=== PATIENT | male | born 1980 | race American Indian/Alaskan Native ===

== ENCOUNTER 2017-07-15 19:54 | Inpatient (IN) | payer MEDICAID, OTHER ==
[2017-07-15 20:06] VITALS: BMI 29.6
--- NOTE | 2017-07-15 20:19 | ED PDOC ---
Arrival/HPI - General Chief Complaint: Psychiatric Evaluation Time Seen by Provider: 07/15/17 19:56 Historian: Patient - History of Present Illness Narrative History of Present Illness (Text): 07/15/17 20:19 Pt. to ED PMX Bipolar Disorder psych transfer from [facility] for admission to the psychiatric unit.Pt. with recent worsening depression and suicidal ideation.No specific plan.Pt. also admits to hearing voices.He denies any somatic complaints. Past Medical History - Provider Review Nursing Documentation Reviewed: Yes - Travel History Have you recently traveled outside [place] w/in the past 3 mons?: No - Infectious Disease Hx of Infectious Diseases: None - Reproductive Currently Lactating: No - Cardiac Hx Cardiac Disorders: No - Pulmonary Hx Respiratory Disorders: No - Neurological Hx Neurological Disorder: No - HEENT Hx HEENT Disorder: No - Renal Hx Renal Disorder: No - Endocrine/Metabolic Hx Endocrine Disorders: No - Hematological/Oncological Hx Blood Disorders: No - Integumentary Hx Dermatological Disorder: No - Musculoskeletal/Rheumatological Hx Musculoskeletal Disorders: No - Gastrointestinal Hx Gastrointestinal Disorders: No - Genitourinary/Gynecological Hx Genitourinary Disorders: No - Psychiatric Hx Psychophysiologic Disorder: Yes Hx Depression: Yes Hx Substance Use: Yes (cocaine) - Anesthesia Hx Anesthesia: No Family/Social History - Physician Review Nursing Documentation Reviewed: Yes Family/Social History: No Known Family HX Smoking Status: Heavy Smoker > 10 Cigarettes Daily Hx Alcohol Use: Yes Hx Substance Use: Yes (cocaine) Allergies/Home Meds Allergies/Adverse Reactions: Allergies No Known Allergies Allergy (Verified 07/15/17 20:02) Home Medications: Home Meds Medication Instructions Recorded Confirmed Sertraline [Zoloft] 0 mg PO DAILY 07/15/17 07/15/17 Review of Systems - Review of Systems Constitutional: Normal Eyes: Normal ENT: Normal Respiratory: Normal Cardiovascular: Normal Gastrointestinal: Normal Genitourinary Male: Normal Musculoskeletal: Normal Skin: Normal Neurological: Normal Endocrine: Normal Hemo/Lymphatic: Normal Psychiatric: Depression, Suicidal Ideation Physical Exam Vital Signs Temp Pulse Resp BP Pulse Ox 07/15/17 19:54 97.0 F L 83 16 112/75 99 Temperature: Afebrile Blood Pressure: Normal Pulse: Regular Respiratory Rate: Normal Appearance: Positive for: Well-Appearing, Non-Toxic, Comfortable Pain Distress: None Mental Status: Positive for: Alert and Oriented X 3 - Systems Exam Head: Present: Atraumatic, Normocephalic Pupils: Present: PERRL Extroacular Muscles: Present: EOMI Conjunctiva: Present: Normal Mouth: Present: Moist Mucous Membranes Neck: Present: Normal Range of Motion Respiratory/Chest: Present: Clear to Auscultation, Good Air Exchange. No: Respiratory Distress, Accessory Muscle Use Cardiovascular: Present: Regular Rate and Rhythm, Normal S1, S2. No: Murmurs Abdomen: Present: Normal Bowel Sounds. No: Tenderness, Distention, Peritoneal Signs Back: Present: Normal Inspection Upper Extremity: Present: Normal Inspection. No: Cyanosis, Edema Lower Extremity: Present: Normal Inspection. No: Edema Neurological: Present: GCS=15, CN II-XII Intact, Speech Normal, Motor Func Grossly Intact, Normal Sensory Function Skin: Present: Warm, Dry, Normal Color. No: Rashes Psychiatric: Present: Alert, Oriented x 3, Normal Insight, Normal Concentration , Other (flat affect) Disposition/Present on Arrival - Present on Arrival Any Indicators Present on Arrival: No History of DVT/PE: No History of Uncontrolled Diabetes: No Urinary Catheter: No History of Decub. Ulcer: No History Surgical Site Infection Following: None - Disposition Have Diagnosis and Disposition been Completed?: Yes Diagnosis: Depression, Suicidal ideation Disposition: HOSPITALIZED Disposition Time: 20:23 Patient Plan: Admission Condition: STABLE Referrals: Perfecto Menchaca, [Primary Care Provider] - Follow up with primary
[2017-07-15] MEDS ORDERED: Alum-Mag Hydrox-Simethicone Susp (30 mL) PO PRN (21:59)
[2017-07-15] MEDS ORDERED: Magnesium Hydroxide Susp 30 ml UD PO PRN (21:59)
[2017-07-16 08:52] LABS: GLUCOSE,FASTING 97 mg/dL (65-110); HDL CHOLESTEROL 59 mg/dL (29-60)
[2017-07-16 09:03] LABS: LDL CHOLESTEROL 132 mg/dL (0-129)
--- NOTE | 2017-07-16 11:19 | CP.PCM.CON ---
<RoshniAamir - Last Filed: 07/16/17 10:56> History of Present Illness - History of Present Illness History of Present Illness: IM Consult Note for Hospitalist Service Consulted for Medical Management This is a 36 yo AA M with reported medical hx of Asthma, Chronic bronchitis, Bipolar, and substance abuse who presents with complaint of depression and suicidal ideation, without plan. Patient was seen at [facility], medically cleared, and [place] [facility]. All labs and paperwork accompanying from [facility] reviewed. Labs notable for positive cocaine in urine drug screen, all other labs and vitals unremarkable. Patient admits to history of cocaine, PCP, and alcohol abuse, denies PCP or alcohol in last 7 months, reports snorting cocaine only (denies any IV drug use in past), and reports last cocaine use approximately 1 week prior. Reports hx of SI, no plan, no actual attempt of self-harm. History of asthma is unclear, reports on rescue inhaler provided by [facility] during prior admission, uses 3 times daily, but reports relief with it. Reports bronchitis constantly, without relief, but denies productive cough, hemoptysis, blood-tinged sputum, or severe pain with coughing. No active wheezing, coughing, or dyspnea at time of exam. Denies chest pain, shortness of breath, nausea, emesis, dizziness, diarrhea, constipation, dysuria, hematuria, hematochezia/melena, focal weakness. Denies current SI, HI, auditory/visual hallucinations. All other ROS in 12-system review negative. PMH: as above PSH: denies FHx: HTN/DM/Depression (Mother), Asthma (brother) SHx: 1/3 ppd cigarettes x ~35 years, prior alcohol abuse (~1/4 pint vodka daily , denies any use in last 7 months), prior PCP use (denies any in last 7 months) , admits active cocaine use (snort only, last used ~1 week ago), denies ever using IV drugs PMD: none Review of Systems - Review of Systems All systems: reviewed and no additional remarkable complaints except (as per HPI ) Past Patient History - Infectious Disease Hx of Infectious Diseases: None - Past Social History Smoking Status: Heavy Smoker > 10 Cigarettes Daily - CARDIAC Hx Cardiac Disorders: No - PULMONARY Hx Respiratory Disorders: No - NEUROLOGICAL Hx Neurological Disorder: No - HEENT Hx HEENT Problems: No - RENAL Hx Chronic Kidney Disease: No - ENDOCRINE/METABOLIC Hx Endocrine Disorders: No - HEMATOLOGICAL/ONCOLOGICAL Hx Blood Disorders: No - INTEGUMENTARY Hx Dermatological Problems: No - MUSCULOSKELETAL/RHEUMATOLOGICAL Hx Musculoskeletal Disorders: No - GASTROINTESTINAL Hx Gastrointestinal Disorders: No - GENITOURINARY/GYNECOLOGICAL Hx Genitourinary Disorders: No - PSYCHIATRIC Hx Depression: Yes Hx Substance Use: Yes - SURGICAL HISTORY Hx Surgeries: No - ANESTHESIA Hx Anesthesia: No Meds Allergies/Adverse Reactions: Allergies Allergy/AdvReac Type Severity Reaction Status Date / Time pepper Allergy RASH Verified 07/15/17 22:04 red (food color) Allergy RASH Verified 07/15/17 22:04 FISH AdvReac RASH Verified 07/15/17 22:04 onion AdvReac RASH Verified 07/15/17 22:04 - Medications Medications: Current Medications Acetaminophen (Tylenol 325mg Tab) 325 mg PO Q6H PRN PRN Reason: Pain, Mild (1-3) Al Hydrox/Mg Hydrox/Simethicone (Maalox Plus 30 Ml) 30 ml PO DAILY PRN PRN Reason: Dyspepsia Aripiprazole (Abilify) 5 mg PO HS [facility] Last Admin: 07/15/17 22:18 Dose: 5 mg Divalproex Sodium (Depakote Er(Once Daily)) 500 mg PO HS [facility] PRN Reason: Protocol Magnesium Hydroxide (Milk Of Magnesia) 30 ml PO DAILY PRN PRN Reason: Constipation Sertraline HCl (Zoloft) 50 mg PO DAILY [facility] Last Admin: 07/16/17 09:22 Dose: 50 mg Zaleplon (Sonata) 5 mg PO HS PRN PRN Reason: Insomnia Last Admin: 07/15/17 22:18 Dose: 5 mg Physical Exam - Constitutional Appears: Well, Non-toxic, No Acute Distress - Head Exam Head Exam: ATRAUMATIC, NORMAL INSPECTION, NORMOCEPHALIC - Eye Exam Eye Exam: EOMI, Normal appearance. absent: Conjunctival injection, Scleral icterus Pupil Exam: absent: Irregular, Unequal - ENT Exam ENT Exam: Mucous Membranes Moist - Neck Exam Neck exam: Positive for: Full Rom, Normal Inspection - Respiratory Exam Respiratory Exam: Decreased Breath Sounds (mildly decreased breath sounds in all almeida), Clear to Auscultation Bilateral, NORMAL BREATHING PATTERN. absent : Rales, Rhonchi, Wheezes - Cardiovascular Exam Cardiovascular Exam: REGULAR RHYTHM, RRR, +S1, +S2. absent: Bradycardia, Tachycardia, Irregular Rhythm, +S4 - GI/Abdominal Exam GI & Abdominal Exam: Normal Bowel Sounds, Soft. absent: Diminished Bowel Sounds , Distended, Firm, Rigid, Tenderness - Extremities Exam Extremities exam: Positive for: normal inspection, pedal pulses present. Negative for: calf tenderness, pedal edema - Neurological Exam Neurological exam: Alert, Oriented x3 Additional comments: awake and alert, gait observed and normal, moving all extremities spontaneously , motor grossly intact and equal bilaterally following all commands appropriately - Psychiatric Exam Psychiatric exam: Normal Affect, Normal Mood Additional comments: denies SI/HI - Skin Skin Exam: Dry, Intact, Normal Color, Warm Results - Vital Signs Recent Vital Signs: Last Vital Signs Temp 98.1 F 07/16/17 07:31 Pulse 73 07/16/17 07:31 Resp 20 07/16/17 07:31 BP 111/64 07/16/17 07:31 Pulse Ox 99 07/15/17 19:54 - Labs Labs: Laboratory Results - last 24 hr 07/16/17 07/16/17 08:20 08:20 Fasting Glucose 97 Triglycerides 161 H Cholesterol 229 H LDL Cholesterol Direct 132 H HDL Cholesterol 59 TSH 3rd Generation 0.67 Assessment & Plan - Assessment and Plan (Free Text) Assessment: This is a 36 yo AA M with reported medical hx of Asthma, Chronic bronchitis, Bipolar, and substance abuse who presents with complaint of depression and suicidal ideation, without plan. Patient was seen at [facility], medically cleared, and transported [place] [facility] [place]. IM has been consulted for medical management. Plan: 1) Bipolar with SI -defer to psych for management 2) tobacco abuse -Nicotine patch 0.7mg TD daily ordered -encouraged and counseled on tobacco cessation 3) Cocaine abuse disorder -positive in urine screen from [facility] -encouraged cessation and avoidance -denies chest pain, shortness of breath, and vitals have been stable since admission, so low concern for cardiac dysfxn 2/2 cocaine at this time, continue to monitor vitals 4) Elevated lipids -encourage improved Heart-healthy diet -no indication for statins at this time, and given cocaine hx, would avoid due to increased risk for rhabdo Dispo: Psych inpatient, pending psych clearance FEN: Heart-healthy diet Access: N/a Consults: IM for medical management, Psych is primary Ppx: ambulation for DVT ppx At this time, patient is medically stable. We will sign off. Please reconsult as needed. Patient reviewed and discussed with attending, Dr. Aguilar. <Ann Aguilar - Last Filed: 07/16/17 12:15> Meds - Medications Medications: Current Medications Acetaminophen (Tylenol 325mg Tab) 325 mg PO Q6H PRN PRN Reason: Pain, Mild (1-3) Al Hydrox/Mg Hydrox/Simethicone (Maalox Plus 30 Ml) 30 ml PO DAILY PRN PRN Reason: Dyspepsia Albuterol Sulfate (Albuterol 0.083% Inhal Geovanna (2.5 Mg/3 Ml) Ud) 2.5 mg INH [id number] PRN PRN Reason: Shortness of breath/wheezing Aripiprazole (Abilify) 5 mg PO HS [facility] Last Admin: 07/15/17 22:18 Dose: 5 mg Divalproex Sodium (Depakote Er(Once Daily)) 500 mg PO HS [facility] PRN Reason: Protocol Magnesium Hydroxide (Milk Of Magnesia) 30 ml PO DAILY PRN PRN Reason: Constipation Nicotine (Nicoderm Cq) 1 patch TD DAILY [facility] Sertraline HCl (Zoloft) 50 mg PO DAILY [facility] Last Admin: 07/16/17 09:22 Dose: 50 mg Zaleplon (Sonata) 5 mg PO HS PRN PRN Reason: Insomnia Last Admin: 07/15/17 22:18 Dose: 5 mg Results - Vital Signs Recent Vital Signs: Last Vital Signs Temp 98.1 F 07/16/17 07:31 Pulse 73 07/16/17 07:31 Resp 20 07/16/17 07:31 BP 111/64 07/16/17 07:31 Pulse Ox 99 07/15/17 19:54 - Labs Labs: Laboratory Results - last 24 hr 07/16/17 07/16/17 08:20 08:20 Fasting Glucose 97 Triglycerides 161 H Cholesterol 229 H LDL Cholesterol Direct 132 H HDL Cholesterol 59 TSH 3rd Generation 0.67 Attending/Attestation - Attestation I have personally seen and examined this patient.: Yes I have fully participated in the care of the patient.: Yes I have reviewed all pertinent clinical information: Yes Notes (Text): 07/16/17 12:12 36 year old male with past medical history of asthma and bipolar/depression who presents with complaint of depressed mood and suicidal ideation. Continue with management as per psychiatrist. He is currently on abilify, zoloft and depakote. He was counselled on smoking cessation and on risks of continued substance abuse. Lipid panel was reviewed and he was counselled on diet modifications with low fat, low cholesterol diet. Continue with albuterol prn for history of asthma. Thank you Dr. Abdi for allowing us to participate in the care of this patient. Please reconsult as needed. Ann Aguilar MD Hospitalist.
--- NOTE | 2017-07-16 13:34 | PCM.PSYCH ---
Initial Psychiatric Evaluation - Initial Psychiatric Evaluation Type of Admission: Voluntary Legal Status: Capacity Chief Complaint (in patient's own words): "I was feeling depressed and suicidal" Patient's Reaction to Hospitalization: Patient is 36 year old male who presented at [facility] ER complaining of feeling suicidal and hearing voices. A bed was unavailable there so they sent him here for admission. History of Present Illness and Precipitating Events: Patient is a 36 year old single male appearing older than his stated age, seen today in treatment team. He is dishevelled and his dentitian is poor with teeth missing. He is cooperative with the interview. Patient lives with his mother in an apartment and is supported by her. He has "never worked a day in my life", and she is psychiatrically disabled and hears voices as well. He has no income. He is involved with a psychiatric outpatient program [facility]. He denies any history of previous psychiatric hospitalizations but has told staff he was hospitalized 14x at [facility]. He says he is on Zoloft and Remeron, unable to tell me the dosages or the pharmacy. He denies previous suicide attempts but sometimes has command hallucinations telling him to hurt himself. Medically he indicates he has food allergies to pepper, red food dye, onions, fish. Has a history of Asthma uses a rescue inhaler 2-3x daily. Legally the patient has no charges pending, has been in correction off and on in his life, estimates at least 20 years total. First arrest was at age 11, has been arrested for possession of drugs many times, also possession of a firearm and terroristic threats. He has been out for 1 1/2 years with no new charges and no PO. He was always kept in the mental health portion of the correction. He has no current access to guns. Social and Developmental History: Patient grew up in [place], father left the family early on, used drugs and when patient 16. He was raised by his mother, is the youngest of three boys but one was from a different father so he took custody of him. Childhood was hard, "my mom did he best she could". Did not do well in school, was in special ed classes and dropped out in the 9th grade. His father and grandfather when he was 16, he started hearing voices shortly after "that is when my life went downhill". He was involved with drugs, went to correction. He has been involved with 5 women and has 6 children, three of them boys. He is only involved with the boys, and all three hear voices and "have problems like me". Goal for treatment according to patient is to decrease his symptoms with medication change while in hospital. He will return home to his mother at discharge. Current Medications: Active Medications Generic Name Dose Route Start Last Admin Trade Name Freq PRN Reason Stop Dose Admin Acetaminophen 325 mg 07/15/17 21:59 Tylenol 325mg Tab PO Q6H PRN Pain, Mild (1-3) Al Hydrox/Mg Hydrox/Simethicone 30 ml 07/15/17 21:59 Maalox Plus 30 Ml PO DAILY PRN Dyspepsia Albuterol Sulfate 2.5 mg 07/16/17 10:55 Albuterol 0.083% Inhal Geovanna (2.5 Mg/3 Ml) Ud INH [id number] PRN Shortness of breath/wheezing Aripiprazole 5 mg 07/15/17 22:00 07/15/17 22:18 Abilify PO 5 mg HS [facility] Administration Divalproex Sodium 500 mg 07/16/17 22:00 Depakote Er(Once Daily) PO HS [facility] Protocol Magnesium Hydroxide 30 ml 07/15/17 21:59 Milk Of Magnesia PO DAILY PRN Constipation Nicotine 1 patch 07/16/17 11:00 07/16/17 13:02 Nicoderm Cq TD 1 patch DAILY [facility] Administration Sertraline HCl 50 mg 07/16/17 08:00 07/16/17 09:22 Zoloft PO 50 mg DAILY [facility] Administration Zaleplon 5 mg 07/15/17 22:00 07/15/17 22:18 Sonata PO 5 mg HS PRN Administration Insomnia Past Psychiatric History - Past Psychiatric History Previous Treatment History: None Prior Psychiatric Treatment: [facility] Explanation of prior treatment: Patient denied ever having been psychiatrically hospitalized in the past however according to staff patient said he had been hospitalized 14x at [facility]. History of Abuse: Denied History of ETOH/Drug Use: Alcohol from age 14 to 11 months ago, stopped to see if he could get medication to help. PCP last used one week ago, cocaine just prior to admission. Denies use of any other substances. History of Family Illness: Mom mentally disabled and hears voices, three sons have the same symptoms,"they are messed up like I am" Pertinent Medical Hx (Current Medical&Sleep Prob, Allergies): Allergies Allergy/AdvReac Type Severity Reaction Status Date / Time pepper Allergy RASH Verified 07/15/17 22:04 red (food color) Allergy RASH Verified 07/15/17 22:04 FISH AdvReac RASH Verified 07/15/17 22:04 onion AdvReac RASH Verified 07/15/17 22:04 Remeron 15 mg PO HS 07/15/17 Sertraline [Zoloft] 0 mg PO DAILY 07/15/17 Review of Systems - EENT Eyes: As Per HPI Ears: As Per HPI Nose/Mouth/Throat: As Per HPI - Cardiovascular Cardiovascular: As Per HPI - Respiratory Respiratory: As Per HPI - Gastrointestinal Gastrointestinal: As Per HPI - Genitourinary Genitourinary: As Per HPI - Reproductive: Male Reproductive:Male: As Per HPI - Musculoskeletal Musculoskeletal: As Par HPI - Integumentary Integumentary: As Per HPI - Neurological Neurological: As Per HPI - Psychiatric Psychiatric: As Per HPI - Endocrine Endocrine: As Per HPI - Hematologic/Lymphatic Hematologic: As Per HPI Mental Status Examination - Personal Presentation Personal Presentation: Looks older than stated age - Affect Affect: Flat - Motor Activity Motor Activity: Calm - Reliability in Providing Information Additional comments: Patient appears to be filtering information - Speech Speech: Organized Additional comments: [place], simplistic in conversation - Mood Mood: Neutral - Formal Thought Process Formal Thought Process: No Impairment - Hallucinations/Delusions Hallucinations: Auditory Additional comments: Has been hearing voices since 17 y/o "I thought it was normal", no medication has ever helped, at times they are command but not now. - Obsessions/Compulsions Obsessions: None Compulsions: None - Cognitive Functions Orientation: Person, Place, Situation, Time Sensorium: Alert Attention/Concentration: Attentive, Easily distracted Abstract Thinking: [place] Judgement: Imparied, as evidence by: Lack of insight into illness - Risk Risk: Suicidal Additional comments: Patient says he is suicidal, no plan - Limitations Additional comments: Patient refuses to allow us to contact his mother or anyone else for collateral information. DSM 5 DX - DSM 5 DSM 5 Diagnosis: Schizophrenia - Recommended/Plan of Treatment Treatment Recommendations and Plan of Treatment: Milieu/structure/supportive therapy Medical consult appreciated, see medical team note for more detailed info consultation for discharge plan and social issues Med management Family involvement Follow up on labs Will monitor closely evaluation for d/c planning Pt was educated about risk/benefits and alternatives of medications, coping strategies (safety plan, suicide prevention), relapse prevention, importance of follow up with psychiatrist and therapist, stay away from drugs/alcohol/smoking Patient started on Abilify 5 mg one at bedtime for hallucinations/ mood stabilization. Patient on Zoloft 50mg one daily as an outpatient, will continue. Started on Depakore ER 500mg one at bedtime for further mood stabilization. Projected ELOS: 07/20/2017 Prognosis: Guarded Discharge Plan and Discharge Criteria: Patient will no longer be hearing voices, patient's mood will improve, patient will have follow up care.. - Smoking Cessation Smoking Cessation Initiated: Yes
--- NOTE | 2017-07-16 13:42 | PCM.PSYCH ---
Initial Psychiatric Evaluation - Initial Psychiatric Evaluation Type of Admission: Voluntary Legal Status: Capacity Current Medications: Active Medications Generic Name Dose Route Start Last Admin Trade Name Freq PRN Reason Stop Dose Admin Acetaminophen 325 mg 07/15/17 21:59 Tylenol 325mg Tab PO Q6H PRN Pain, Mild (1-3) Al Hydrox/Mg Hydrox/Simethicone 30 ml 07/15/17 21:59 Maalox Plus 30 Ml PO DAILY PRN Dyspepsia Albuterol Sulfate 2.5 mg 07/16/17 10:55 Albuterol 0.083% Inhal Geovanna (2.5 Mg/3 Ml) Ud INH [id number] PRN Shortness of breath/wheezing Aripiprazole 5 mg 07/15/17 22:00 07/15/17 22:18 Abilify PO 5 mg HS [facility] Administration Divalproex Sodium 500 mg 07/16/17 22:00 Depakote Er(Once Daily) PO HS [facility] Protocol Magnesium Hydroxide 30 ml 07/15/17 21:59 Milk Of Magnesia PO DAILY PRN Constipation Nicotine 1 patch 07/16/17 11:00 07/16/17 13:02 Nicoderm Cq TD 1 patch DAILY [facility] Administration Sertraline HCl 50 mg 07/16/17 08:00 07/16/17 09:22 Zoloft PO 50 mg DAILY [facility] Administration Zaleplon 5 mg 07/15/17 22:00 07/15/17 22:18 Sonata PO 5 mg HS PRN Administration Insomnia Past Psychiatric History - Past Psychiatric History Previous Treatment History: [facility]patient [facility]: [facility], 14x Pertinent Medical Hx (Current Medical&Sleep Prob, Allergies): Allergies Allergy/AdvReac Type Severity Reaction Status Date / Time pepper Allergy RASH Verified 07/15/17 22:04 red (food color) Allergy RASH Verified 07/15/17 22:04 FISH AdvReac RASH Verified 07/15/17 22:04 onion AdvReac RASH Verified 07/15/17 22:04 Remeron 15 mg PO HS 07/15/17 Sertraline [Zoloft] 0 mg PO DAILY 07/15/17
--- NOTE | 2017-07-16 19:57 | PCM.BM ---
<Elva Wilkins - Last Filed: 07/16/17 19:54> Treatment Plan Problems - Problems identified on initial assessmt altered thought process Date Initiated: 07/16/17 Time Initiated: 19:00 Assessment reference: NA Status: Active Priority: 1 ineffective coping skills Date Initiated: 07/16/17 Time Initiated: 19:00 Assessment reference: NA Status: Active Priority: 2 Treatment assets and liabiliti Patient Assests: cooperative, negotiates basic needs Patient Liabilities: financial problems, substance abuse - Milieu Protocol Maintain good personal hygiene: daily Encourage regular showers, daily Remind patient to perform daily oral care, daily Assist patient to perform ADL's Maintain personal safety: every shift Educate patient to report safety concerns to staff, every shift Monitor environment for contraband/sharps Medication safety: Monitor for expected outcome, potential side effects: every shift, Assess barriers to learning: every shift, Assess readiness for medication education: every shift Milieu Narrative: Milieu/structure/supportive therapy Medical consult appreciated, see medical team note for more detailed info SW consultation for discharge plan and social issues Med management Family involvement Follow up on labs Will monitor closely SW evaluation for d/c planning Pt was educated about risk/benefits and alternatives of medications, coping strategies (safety plan, suicide prevention), relapse prevention, importance of follow up with psychiatrist and therapist, stay away from drugs/alcohol/smoking Patient started on Abilify 5 mg one at bedtime for hallucinations/ mood stabilization. Patient on Zoloft 50mg one daily as an outpatient, will continue. Started on Depakore ER 500mg one at bedtime for further mood stabilization. Discharge/Continuing Care - Education Needs Education Needs: Patient Medication, Patient Diagnosis/Disease Process, Patient Coping Skills, Patient Placement options, Patient Community resources, Patient Activities of Daily Living, Patient Health Practices/Safety, Patient Personal Hygiene/Grooming, Patient Aftercare Safety Plan - Discharge Discharge Criteria: Tolerates medication w/o severe side effects, Free of Suicidal thoughts, Free of agitation, Normal sleep pattern, Ability to care for self, No longer exhibiting s/s of withdrawal, Reduction of target symptoms Discharge to:: Home - Treatment Team Participation Patient/Family/SO Statement: Milieu/structure/supportive therapy Medical consult appreciated, see medical team note for more detailed info SW consultation for discharge plan and social issues Med management Family involvement Follow up on labs Will monitor closely SW evaluation for d/c planning Pt was educated about risk/benefits and alternatives of medications, coping strategies (safety plan, suicide prevention), relapse prevention, importance of follow up with psychiatrist and therapist, stay away from drugs/alcohol/smoking Patient started on Abilify 5 mg one at bedtime for hallucinations/ mood stabilization. Patient on Zoloft 50mg one daily as an outpatient, will continue. Started on Depakore ER 500mg one at bedtime for further mood stabilization. <Melva Erickson - Last Filed: 07/17/17 08:18> - Diagnosis (1) Depression Status: Acute Interventions: Psychoeducation Psychopharmacology/adjustment of medications as needed/ monitoring possible side effects Evaluate pt on daily basis Compliance with medications and follow up appointments Suicide and homicide risk assessment and prevention Relapse prevention Reduction of symptoms Improve functional status Family involvement As outpatient: cognitive behavioral therapy 07/17/17 08:19 <Ann Diaz - Last Filed: 07/17/17 16:02>
[2017-07-16] MEDS: Divalproex 500 mg ER (ONCE DAILY formulation) PO SCH (21:31)
--- NOTE | 2017-07-17 13:43 | PCM.PYCHPN ---
Psychiatric Progress Note - Psychiatric Progress Note Patient seen today, length of contact: 30 Patient Chief Complaint: "I am feeling a little better" Problems Identified/Issues Discussed: Patient is 36 year old male who presented at [facility] ER complaining of feeling suicidal and hearing voices. A bed was unavailable there so they sent him here for admission. He appears older than his stated age , seen today in treatment team. He is dishevelled and his dentitian is poor with teeth missing. He is cooperative with the interview. Patient lives with his mother in an apartment and is supported by her. He has "never worked a day in my life", and she is psychiatrically disabled and hears voices as well. He has no income. Patient is seen today in common area of the unit. Hygiene and grooming are adequate, affect is flat. He indicates the voices are decreasing "just mumbling " now. Indicates he feels the medication is helpful, that he feels calmer. He indicates he always feels good when he leaves the hospital, but then he does not follow through. Discussed with patient the different levels of care and the degree of support available. I pointed out that with him psychiatrically stabilized a treatment program for his drug problems might be a good idea and patient was interested. He has been incarcerated for 20 of his 36 years so he really does not know how to function day to day and he has little support. Will discuss with SW. Patient is spending time outside of his room, socialization is minimal but he attends groups and activities. Medical Problems: Asthma Chronic Bronchitis Diagnostic Results: Laboratory Results - last 72 hr 07/16/17 07/16/17 07/16/17 08:20 08:20 08:20 Fasting Glucose 97 Hemoglobin A1c 5.3 Triglycerides 161 H Cholesterol 229 H LDL Cholesterol Direct 132 H HDL Cholesterol 59 TSH 3rd Generation 0.67 RPR 07/16/17 08:20 Fasting Glucose Hemoglobin A1c Triglycerides Cholesterol LDL Cholesterol Direct HDL Cholesterol TSH 3rd Generation RPR Nonreactive Temp Pulse Resp BP Pulse Ox 97.9 F 75 20 134/71 99 07/17/17 07:12 07/17/17 07:12 07/17/17 07:12 07/17/17 07:12 07/15/17 19:54 Medication Change: No Medical Record Reviewed: Yes Consults ordered or reviewed: Medical consult reviewed, thank you Mental Status Examination - Cognitive Function Orientation: Person, Place, Situation, Time - Mood Mood: Neutral - Affect Affect: Flat - Formal Thought Process Formal Thought Process: No Impairment Goal/Treatment Plan - Goal/Treatment Plan Progress Toward Problem(s) and Goals/Treatment Plan: Milieu/structure/supportive therapy Medical consult appreciated, see medical team note for more detailed info SW consultation for discharge plan and social issues Med management Family involvement Follow up on labs Will monitor closely evaluation for d/c planning Pt was educated about risk/benefits and alternatives of medications, coping strategies (safety plan, suicide prevention), relapse prevention, importance of follow up with psychiatrist and therapist, stay away from drugs/alcohol/smoking Patient started on Abilify 5 mg one at bedtime for hallucinations/ mood stabilization. Patient on Zoloft 50mg one daily as an outpatient, will continue. Started on Depakore ER 500mg one at bedtime for further mood stabilization.
[2017-07-17] MEDS: Divalproex 500 mg ER (ONCE DAILY formulation) PO SCH (21:13)
--- NOTE | 2017-07-18 12:15 | PCM.PYCHPN ---
Psychiatric Progress Note - Psychiatric Progress Note Patient seen today, length of contact: 30 Patient Chief Complaint: "I still hear the voices mumbling" Problems Identified/Issues Discussed: Patient is 36 year old male who presented at [facility] ER complaining of feeling suicidal and hearing voices. A bed was unavailable there so they sent him here for admission. He appears older than his stated age , seen today in treatment team. He is dishevelled and his dentitian is poor with teeth missing. He is cooperative with the interview. Patient lives with his mother in an apartment and is supported by her. He has "never worked a day in my life", and she is psychiatrically disabled and hears voices as well. He has no income. Patient is seen today in common area of the unit. Hygiene and grooming are adequate, affect continues flat. Patient still hears voices mumbling and has some depression, but is starting to feel hope for the future. This is his first hospitalization, but he has been in [facility] ER multiple times for his symptoms. When in half-way was in the mental health treatment wing for most of the time he was there. Patient is motivated for treatment outpatient, has a phone screening today for rehab. Has minimal support outside of here, would like to get involved in the yazidism, guest services manager called. He is cooperative with the unit routines, and socializes appropriately with peers. Medical Problems: Asthma Chronic Bronchitis Diagnostic Results: Laboratory Results - last 72 hr 07/16/17 07/16/17 07/16/17 08:20 08:20 08:20 Fasting Glucose 97 Hemoglobin A1c 5.3 Triglycerides 161 H Cholesterol 229 H LDL Cholesterol Direct 132 H HDL Cholesterol 59 TSH 3rd Generation 0.67 RPR 07/16/17 08:20 Fasting Glucose Hemoglobin A1c Triglycerides Cholesterol LDL Cholesterol Direct HDL Cholesterol TSH 3rd Generation RPR Nonreactive Temp Pulse Resp BP Pulse Ox 97.9 F 75 20 134/71 99 07/17/17 07:12 07/17/17 07:12 07/17/17 07:12 07/17/17 07:12 07/15/17 19:54 Temp Pulse Resp BP Pulse Ox 97.8 F 75 20 124/81 99 07/18/17 07:27 07/18/17 07:27 07/18/17 07:27 07/18/17 07:27 07/15/17 19:54 Medication Change: No Medical Record Reviewed: Yes Consults ordered or reviewed: Medical consult reviewed, thank you Mental Status Examination - Cognitive Function Orientation: Person, Place, Situation, Time - Mood Mood: Neutral - Affect Affect: Flat - Formal Thought Process Formal Thought Process: No Impairment Goal/Treatment Plan - Goal/Treatment Plan Progress Toward Problem(s) and Goals/Treatment Plan: Milieu/structure/supportive therapy Medical consult appreciated, see medical team note for more detailed info consultation for discharge plan and social issues Med management Family involvement Follow up on labs Will monitor closely SW evaluation for d/c planning Pt was educated about risk/benefits and alternatives of medications, coping strategies (safety plan, suicide prevention), relapse prevention, importance of follow up with psychiatrist and therapist, stay away from drugs/alcohol/smoking Patient started on Abilify 5 mg one at bedtime for hallucinations/ mood stabilization. Patient on Zoloft 50mg one daily as an outpatient, will continue. Started on Depakore ER 500mg one at bedtime for further mood stabilization.
[2017-07-18] MEDS: Albuterol 0.083% Inhal Sol (2.5 mg/3 mL) UD INH PRN (20:45)
[2017-07-18] MEDS: Divalproex 500 mg ER (ONCE DAILY formulation) PO SCH (21:12)
--- NOTE | 2017-07-19 13:46 | PCM.PYCHPN ---
Psychiatric Progress Note - Psychiatric Progress Note Patient seen today, length of contact: 30 Patient Chief Complaint: "I just feel hopeless sometimes" Problems Identified/Issues Discussed: Patient is 36 year old male who presented at [facility] ER complaining of feeling suicidal and hearing voices. A bed was unavailable there so they sent him here for admission. He appears older than his stated age , seen today in treatment team. He is dishevelled and his dentitian is poor with teeth missing. He is cooperative with the interview. Patient lives with his mother in an apartment and is supported by her. He has "never worked a day in my life", and she is psychiatrically disabled and hears voices as well. He has no income. Patient is seen today in common area of the unit. Hygiene and grooming are adequate, affect continues flat. Patient saw the fruit receiver yesterday and evidently shared that he is still feeling hopeless and suicidal. He indicates he is feeling this way today as well, that he has been a "failure" and wants things to be different this time. He is medication cooperative and cooperative with the unit routine. He may possibly have a rehab bed Sunday and is working actively with SW on his discharge plan. He does not feel medication is helpful so is agreeable to medication change, these gone over with Medication Changes: Discontinue Zoloft, Abilify, and Depakote. Start Prozac 10mg in AM for depression Risperdal 1mg AM and HS for voices and mood stabilization Cogentin 1mg AM and HS to prevent side effects Medical Problems: Asthma Chronic Bronchitis Diagnostic Results: Laboratory Results - last 72 hr 07/16/17 07/16/17 07/16/17 08:20 08:20 08:20 Fasting Glucose 97 Hemoglobin A1c 5.3 Triglycerides 161 H Cholesterol 229 H LDL Cholesterol Direct 132 H HDL Cholesterol 59 TSH 3rd Generation 0.67 RPR 07/16/17 08:20 Fasting Glucose Hemoglobin A1c Triglycerides Cholesterol LDL Cholesterol Direct HDL Cholesterol TSH 3rd Generation RPR Nonreactive Temp Pulse Resp BP Pulse Ox 97.9 F 75 20 134/71 99 07/17/17 07:12 07/17/17 07:12 07/17/17 07:12 07/17/17 07:12 07/15/17 19:54 Temp Pulse Resp BP Pulse Ox 97.8 F 75 20 124/81 99 07/18/17 07:27 07/18/17 07:27 07/18/17 07:27 07/18/17 07:27 07/15/17 19:54 Temp Pulse Resp BP Pulse Ox 97.9 F 76 20 120/76 99 07/19/17 07:24 07/19/17 07:24 07/19/17 07:24 07/19/17 07:24 07/15/17 19:54 Medication Change: Yes (See note ) Medical Record Reviewed: Yes Consults ordered or reviewed: Medical consult reviewed, thank you Mental Status Examination - Cognitive Function Orientation: Person, Place, Situation, Time - Mood Mood: Neutral - Affect Affect: Flat - Formal Thought Process Formal Thought Process: No Impairment Goal/Treatment Plan - Goal/Treatment Plan Progress Toward Problem(s) and Goals/Treatment Plan: Milieu/structure/supportive therapy Medical consult appreciated, see medical team note for more detailed info SW consultation for discharge plan and social issues Med management Family involvement Follow up on labs Will monitor closely SW evaluation for d/c planning Pt was educated about risk/benefits and alternatives of medications, coping strategies (safety plan, suicide prevention), relapse prevention, importance of follow up with psychiatrist and therapist, stay away from drugs/alcohol/smoking Patient started on Abilify 5 mg one at bedtime for hallucinations/ mood stabilization. Patient on Zoloft 50mg one daily as an outpatient, will continue. Started on Depakore ER 500mg one at bedtime for further mood stabilization.
--- NOTE | 2017-07-20 17:06 | PCM.PYCHPN ---
Psychiatric Progress Note - Psychiatric Progress Note Patient seen today, length of contact: 30min Patient Chief Complaint: "I hear some mumbles" Problems Identified/Issues Discussed: Suicide/ homicide prevention, past psychiatric h/o, current psychiatric symptoms , medical problems, risk/benefits and alternatives of medications, medications compliance, coping strategies, substance abuse h/o, relapse prevention, importance of follow up with psychiatrist and therapist, discharge plan. Medical Problems: pt is relatively healthy Diagnostic Results: Lab Results 07/16/17 08:20: RPR Nonreactive 07/16/17 08:20: TSH 3rd Generation 0.67 07/16/17 08:20: Hemoglobin A1c 5.3 07/16/17 08:20: Fasting Glucose 97, Triglycerides 161 H, Cholesterol 229 H, LDL Cholesterol Direct 132 H, HDL Cholesterol 59 Vital Signs Temp Pulse Resp BP Pulse Ox 07/20/17 07:33 98.0 F 70 20 105/60 07/19/17 16:00 78 119/70 07/19/17 07:24 97.9 F 76 20 120/76 07/18/17 16:00 88 131/80 07/18/17 07:27 97.8 F 75 20 124/81 07/17/17 16:00 78 126/76 07/17/17 07:12 97.9 F 75 20 134/71 07/16/17 16:00 65 124/73 07/16/17 07:31 98.1 F 73 20 111/64 07/16/17 00:47 17 07/15/17 19:54 97.0 F L 83 16 112/75 99 DSM 5 Symptoms Update: Patient is 36 year old male who presented at [facility] ER complaining of feeling suicidal and hearing voices. A bed was unavailable there so they sent him here for admission. see CAMPUS COORDINATOR note for more detailed info. pt was seen and examined today at the treatment team room. as per SW report pt was rejected by inpatient rehab, pt was educated about that decision, pt seems to be very depressed about that. pt asked "now what?, I have been in IOP program, I need to go to rehab". CAMPUS COORDINATOR change meds, pt was educated about the current med list, risk/benefits and alternatives discussed. pt reported tolerating them well. patient reported that she still hears some voices, denied command type hallucinations, patient reported that he hears "mumbles, noises", patient reported his mood to be depressed and hopeless, patient denied thoughts of harming self or others. As per staff patient was pleasant, corporative, socially appropriate, at the same time appears to be very sad, and hopeless. As per history patient has: DSM5: Schizoaffective disorder versus schizophrenia Rule out antisocial personality disorder. Medication Change: Yes (Prozac will be increased to 20 mg daily) Medical Record Reviewed: Yes Consults ordered or reviewed: Suicide/ homicide prevention, past psychiatric h/o, current psychiatric symptoms , medical problems, risk/benefits and alternatives of medications, medications compliance, coping strategies, substance abuse h/o, relapse prevention, importance of follow up with psychiatrist and therapist, discharge plan. Mental Status Examination - Cognitive Function Orientation: Person, Place, Situation, Time Memory: Intact Attention: Poor Concentration: Poor Association: WNL Fund of Knowledge: Poor - Mood Mood: Neutral - Affect Affect: Flat - Formal Thought Process Formal Thought Process: No Impairment, Hallucinations ("I hear some noises") - Suicidal Ideation Suicidal Ideation: No - Homicidal Ideation Homicidal Ideation: No Goal/Treatment Plan - Goal/Treatment Plan Need for Continued Stay: Remain at risks for inpatient hospitalization, Severe depression anxiety, Discharge may exacerbated symptoms, Severe functional impairment Progress Toward Problem(s) and Goals/Treatment Plan: Milieu/structure/supportive therapy Medical consult appreciated, see medical team note for more detailed info SW consultation for discharge plan and social issues Med management Prozac 20mg in AM for depression and anxiety Risperdal 1mg AM and HS for voices and mood stabilization Cogentin 1mg AM and HS to prevent side effects Family involvement Follow up on labs Will monitor closely Pt was educated about risk/benefits and alternatives of medications, coping strategies (safety plan, suicide prevention), relapse prevention, importance of follow up with psychiatrist and therapist, stay away from drugs/alcohol/smoking Estimated Date of D/C: 07/25/17
[2017-07-20] MEDS: Albuterol 0.083% Inhal Sol (2.5 mg/3 mL) UD INH PRN (22:16)
--- NOTE | 2017-07-21 10:10 | PCM.PYCHPN ---
Psychiatric Progress Note - Psychiatric Progress Note Patient seen today, length of contact: 25 min Patient Chief Complaint: "a little down" Problems Identified/Issues Discussed: I reviewed assessment and recent notes. I met with patient at bedside and he appears adequately groomed and superficially cooperative. Patient is oriented to month, year and location. Indicates that he feels "a little down" and did not sleep well last night. Patient appears depressed with constricted affect. Reports some hopelessness at times and denies any thoughts to harm self or others. Currently feel safe on the unit. He continues to endorse auditory hallucinations of a voice telling him to kill himself. Again, patient denies any desire to harm himself or end his life. Staff notes indicate the patient has been visible on the unit at time. Behavior is generally withdrawn and passive. He generally demonstrates little interest in engaging with other patients. There were no behavioral issues overnight. Diagnostic Results: Schizoaffective disorder versus schizophrenia Rule out antisocial personality disorder. Medication Change: Yes (Prozac will be increased to 20 mg daily) Medical Record Reviewed: Yes Mental Status Examination - Cognitive Function Orientation: Person, Place, Situation, Time Memory: Intact Attention: Poor Concentration: Poor Association: WNL Fund of Knowledge: Poor - Mood Mood: Depressed ("a little down" ) - Affect Affect: Flat - Speech Speech: Appropriate - Formal Thought Process Formal Thought Process: No Impairment, Hallucinations ( CAH to kill himself) - Suicidal Ideation Suicidal Ideation: No - Homicidal Ideation Homicidal Ideation: No Goal/Treatment Plan - Goal/Treatment Plan Need for Continued Stay: Remain at risks for inpatient hospitalization, Severe depression anxiety, Discharge may exacerbated symptoms, Severe functional impairment Progress Toward Problem(s) and Goals/Treatment Plan: c/w current tx and plan No new weekend labs thus far Vitals reviewed and noted below: 07/21/17 07:53 Temperature 97.5 F L Pulse Rate 78 Respiratory 20 Rate Blood Pressure 112/66 Estimated Date of D/C: 07/25/17
[2017-07-21] MEDS: Albuterol 0.083% Inhal Sol (2.5 mg/3 mL) UD INH PRN ×2 (12:52→22:45)
--- NOTE | 2017-07-22 12:06 | PCM.PYCHPN ---
Psychiatric Progress Note - Psychiatric Progress Note Patient seen today, length of contact: 25 min Patient Chief Complaint: "not too good, not too bad" Problems Identified/Issues Discussed: I reviewed recent notes and met with patient in the dayroom. He is oriented to month, year, location and circumstances. Grooming is adequate. Patient reports that he is "not too good, not too bad" and then hands me a note that reads: "I am still suicidal and still hearing voices. I need to be admitted to long- term treatment. I am a danger to myself and others on the street. I need real help. I would like to go to [facility], if not, somewhere that's open to long-term to address this crucial situation with myself". Patient doesn't seem to want to elaborate on the contents of the note. Indicates that he feels safe on the unit but doesn't know what he would do if he was discharged. Patient appears depressed with constricted affect. Patient continues to endorse auditory hallucinations of a voice commanding him to kill himself. Again patient denies having any desire to harm himself or end his life. He really doesn't appear to be hallucinating and wasn't observed to be responding to internal stimuli. Staff notes indicate the patient has been visible but mostly quiet on the unit. At times he does interact with others but generally withdrawn and passive. There were no behavioral issues over the weekend. Diagnostic Results: Schizoaffective disorder versus schizophrenia Rule out antisocial personality disorder. Medication Change: Yes (Prozac will be increased to 20 mg daily) Medical Record Reviewed: Yes Mental Status Examination - Cognitive Function Orientation: Person, Place, Situation, Time Memory: Intact Attention: Poor Concentration: Poor Association: WNL Fund of Knowledge: Poor - Mood Mood: Depressed ( "not too good, not too bad") - Affect Affect: Constricted, Flat - Speech Speech: Appropriate - Formal Thought Process Formal Thought Process: No Impairment, Hallucinations ( CAH to kill himself but he doesn't appear to be responding to internal stimuli) - Suicidal Ideation Suicidal Ideation: No - Homicidal Ideation Homicidal Ideation: No Goal/Treatment Plan - Goal/Treatment Plan Need for Continued Stay: Remain at risks for inpatient hospitalization, Severe depression anxiety, Discharge may exacerbated symptoms, Severe functional impairment Progress Toward Problem(s) and Goals/Treatment Plan: c/w current tx and plan No new weekend labs Vitals reviewed and noted below: Selected Entries 07/22/17 07:26 Temperature 97.7 F Pulse Rate 76 Respiratory 20 Rate Blood Pressure 120/62 Estimated Date of D/C: 07/25/17
[2017-07-23] MEDS: Albuterol 0.083% Inhal Sol (2.5 mg/3 mL) UD INH PRN (14:23)
--- NOTE | 2017-07-23 16:19 | PCM.BM ---
<Kayce Veloz - Last Filed: 07/23/17 16:18> Treatment Plan Problems - Problems identified on initial assessmt altered thought process Date Initiated: 07/16/17 Time Initiated: 19:00 Assessment reference: NA Status: Active Priority: 1 ineffective coping skills Date Initiated: 07/16/17 Time Initiated: 19:00 Assessment reference: NA Status: Active Priority: 2 Treatment assets and liabiliti Patient Assests: cooperative, negotiates basic needs Patient Liabilities: financial problems, substance abuse - Milieu Protocol Maintain good personal hygiene: daily Encourage regular showers, daily Remind patient to perform daily oral care, daily Assist patient to perform ADL's Maintain personal safety: every shift Educate patient to report safety concerns to staff, every shift Monitor environment for contraband/sharps Medication safety: Monitor for expected outcome, potential side effects: every shift, Assess barriers to learning: every shift, Assess readiness for medication education: every shift Milieu Narrative: c/w current tx and plan No new weekend labs Vitals reviewed and noted below: Selected Entries 07/22/17 07:26 Temperature 97.7 F Pulse Rate 76 Respiratory 20 Rate Blood Pressure 120/62 Family Contact Family involvement: Family/SO is involved Family contact: Patient agrees to contact - Goals for Treatment Patient goals for treatment: "I want to get into a rehab." Discharge/Continuing Care - Education Needs Education Needs: Patient Medication, Patient Diagnosis/Disease Process, Patient Coping Skills, Patient Placement options, Patient Community resources, Patient Activities of Daily Living, Patient Health Practices/Safety, Patient Personal Hygiene/Grooming, Patient Aftercare Safety Plan - Discharge Discharge Criteria: Tolerates medication w/o severe side effects, Free of Suicidal thoughts, Free of agitation, Normal sleep pattern, Ability to care for self, No longer exhibiting s/s of withdrawal, Reduction of target symptoms Discharge to:: Home - Treatment Team Participation Patient/Family/SO Statement: c/w current tx and plan No new weekend labs Vitals reviewed and noted below: Selected Entries 07/22/17 07:26 Temperature 97.7 F Pulse Rate 76 Respiratory 20 Rate Blood Pressure 120/62 Treatment Plan Review - Problem altered thought process Time Initiated: 19:00 ineffective coping skills Time Initiated: 19:00 <Jennifer Abdi A - Last Filed: 07/23/17 17:36> - Diagnosis (1) Depression Status: Acute Interventions: depression -meds increased suicidal ideation -safety plan discussed social isolation- IOP program voices -antipsychotic meds substance abuse -inpatient rehab referral.
--- NOTE | 2017-07-23 17:40 | PCM.PYCHPN ---
Psychiatric Progress Note - Psychiatric Progress Note Patient seen today, length of contact: 30min Patient Chief Complaint: [facility] Problems Identified/Issues Discussed: Suicide/ homicide prevention, past psychiatric h/o, current psychiatric symptoms , medical problems, risk/benefits and alternatives of medications, medications compliance, coping strategies, substance abuse h/o, relapse prevention, importance of follow up with psychiatrist and therapist, discharge plan. Medical Problems: pt is relatively healthy Diagnostic Results: Lab Results 07/16/17 08:20: RPR Nonreactive 07/16/17 08:20: TSH 3rd Generation 0.67 07/16/17 08:20: Hemoglobin A1c 5.3 07/16/17 08:20: Fasting Glucose 97, Triglycerides 161 H, Cholesterol 229 H, LDL Cholesterol Direct 132 H, HDL Cholesterol 59 Vital Signs Temp Pulse Resp BP Pulse Ox 07/20/17 07:33 98.0 F 70 20 105/60 07/19/17 16:00 78 119/70 07/19/17 07:24 97.9 F 76 20 120/76 07/18/17 16:00 88 131/80 07/18/17 07:27 97.8 F 75 20 124/81 07/17/17 16:00 78 126/76 07/17/17 07:12 97.9 F 75 20 134/71 07/16/17 16:00 65 124/73 07/16/17 07:31 98.1 F 73 20 111/64 07/16/17 00:47 17 07/15/17 19:54 97.0 F L 83 16 112/75 99 DSM 5 Symptoms Update: Patient is 36 year old male who presented at [facility] ER complaining of feeling suicidal and hearing voices. A bed was unavailable there so they sent him here for admission. see MANAGER RADIO note for more detailed info. pt was seen and examined today at the treatment team room, pt wrote a letter saying that he still feels depressed/hopeless/suicidal thoughts, requested to be transfer to [facility] or inpatient rehab. Rehabs refusing to accept pt because of h/o incarcerations and antisocial behavior. but from this admission pt never been disrespectful, pt is polite, participate in tx plan, no aggressive or agitated behavior. as per staff pt is doing better, going to groups, have good appetite and sleep. As per staff patient was pleasant, corporative, socially appropriate, at the same time appears to be very sad, and hopeless. patient tolerated medications well, no side effects reported or observed. AIMS 0 , no EPS. As per history patient has: DSM5: Schizoaffective disorder versus schizophrenia Rule out antisocial personality disorder. Medication Change: Yes (prozac increased, risperdal increased) Medical Record Reviewed: Yes Consults ordered or reviewed: Suicide/ homicide prevention, past psychiatric h/o, current psychiatric symptoms , medical problems, risk/benefits and alternatives of medications, medications compliance, coping strategies, substance abuse h/o, relapse prevention, importance of follow up with psychiatrist and therapist, discharge plan. Mental Status Examination - Cognitive Function Orientation: Person, Place, Situation, Time Memory: Intact Attention: Poor Concentration: Poor Association: WNL Fund of Knowledge: Poor - Mood Mood: Depressed ( "not too good, not too bad") - Affect Affect: Constricted, Flat - Speech Speech: Appropriate - Formal Thought Process Formal Thought Process: No Impairment, Hallucinations ( CAH to kill himself but he doesn't appear to be responding to internal stimuli) - Suicidal Ideation Suicidal Ideation: No - Homicidal Ideation Homicidal Ideation: No Goal/Treatment Plan - Goal/Treatment Plan Need for Continued Stay: Remain at risks for inpatient hospitalization, Severe depression anxiety, Discharge may exacerbated symptoms, Severe functional impairment Progress Toward Problem(s) and Goals/Treatment Plan: Milieu/structure/supportive therapy Medical consult appreciated, see medical team note for more detailed info SW consultation for discharge plan and social issues Med management Prozac 30mg in AM for depression and anxiety Risperdal 2mg AM and HS for voices and mood stabilization Cogentin 2mg AM and HS to prevent side effects Family involvement Follow up on labs Will monitor closely Pt was educated about risk/benefits and alternatives of medications, coping strategies (safety plan, suicide prevention), relapse prevention, importance of follow up with psychiatrist and therapist, stay away from drugs/alcohol/smoking Estimated Date of D/C: 07/25/17
--- NOTE | 2017-07-23 20:09 | US ---
HISTORY: Leg pain and swelling. Evaluate for DVT PHYSICIAN(S): Enrique Salazar MD. TECHNIQUE: Duplex sonography and color-flow Doppler with graded compression were used to evaluate the deep venous systems of both lower extremities. FINDINGS: The visualized deep venous systems of both lower extremities are sonographically normal and compressible. Normal wave forms and augmentation are seen. There is no sonographic evidence for deep venous thrombosis in the visualized segments of both lower extremities. IMPRESSION: No sonographic evidence for deep venous thrombosis in the visualized segments of both lower extremities.
[2017-07-24 07:29] VITALS: O2SAT 20
--- NOTE | 2017-07-24 16:30 | PCM.PYCHPN ---
Psychiatric Progress Note - Psychiatric Progress Note Patient seen today, length of contact: 30min Patient Chief Complaint: "I just feel hopeless sometimes" Problems Identified/Issues Discussed: Patient is 36 year old male who presented at [facility] ER complaining of feeling suicidal and hearing voices. A bed was unavailable there so they sent him here for admission. He appears older than his stated age , seen today in treatment team. He is dishevelled and his dentitian is poor with teeth missing. He is cooperative with the interview. Patient lives with his mother in an apartment and is supported by her. He has "never worked a day in my life", and she is psychiatrically disabled and hears voices as well. He has no income. Patient is seen in common area of unit. Appearance is kempt, pleasant and cooperative in conversation. Patient indicates that he is feeling "in the middle " but is not suicidal. He indicates he "always" hallucinates is vague about content. He is cooperative with unit routines and appropriate with staff and peers. He feels the medication is helpful, denies any side effects, AIMS exam negative. He indicates he still wants to go to a rehab after discharge. Medical Problems: Asthma Chronic Bronchitis Diagnostic Results: Laboratory Results - last 72 hr 07/16/17 07/16/17 07/16/17 08:20 08:20 08:20 Fasting Glucose 97 Hemoglobin A1c 5.3 Triglycerides 161 H Cholesterol 229 H LDL Cholesterol Direct 132 H HDL Cholesterol 59 TSH 3rd Generation 0.67 RPR 07/16/17 08:20 Fasting Glucose Hemoglobin A1c Triglycerides Cholesterol LDL Cholesterol Direct HDL Cholesterol TSH 3rd Generation RPR Nonreactive Temp Pulse Resp BP Pulse Ox 97.9 F 75 20 134/71 99 07/17/17 07:12 07/17/17 07:12 07/17/17 07:12 07/17/17 07:12 07/15/17 19:54 Temp Pulse Resp BP Pulse Ox 97.8 F 75 20 124/81 99 07/18/17 07:27 07/18/17 07:27 07/18/17 07:27 07/18/17 07:27 07/15/17 19:54 Temp Pulse Resp BP Pulse Ox 97.9 F 76 20 120/76 99 07/19/17 07:24 07/19/17 07:24 07/19/17 07:24 07/19/17 07:24 07/15/17 19:54 Temp Pulse Resp BP Pulse Ox 98.0 F 75 20 115/59 L 20 L 07/24/17 07:28 07/24/17 15:55 07/23/17 07:21 07/24/17 15:55 07/24/17 07:28 Medication Change: No Medical Record Reviewed: Yes Consults ordered or reviewed: Medical consult reviewed, thank you Mental Status Examination - Cognitive Function Orientation: Person, Place, Situation, Time Memory: Intact Attention: Poor Concentration: Poor Association: WNL Fund of Knowledge: Poor - Mood Mood: Depressed ( "not too good, not too bad") - Affect Affect: Constricted, Flat - Speech Speech: Appropriate - Formal Thought Process Formal Thought Process: No Impairment, Hallucinations ( CAH to kill himself but he doesn't appear to be responding to internal stimuli) - Suicidal Ideation Suicidal Ideation: No - Homicidal Ideation Homicidal Ideation: No Goal/Treatment Plan - Goal/Treatment Plan Need for Continued Stay: Remain at risks for inpatient hospitalization, Severe depression anxiety, Discharge may exacerbated symptoms, Severe functional impairment Progress Toward Problem(s) and Goals/Treatment Plan: Milieu/structure/supportive therapy Medical consult appreciated, see medical team note for more detailed info consultation for discharge plan and social issues Med management Family involvement Follow up on labs Will monitor closely evaluation for d/c planning Pt was educated about risk/benefits and alternatives of medications, coping strategies (safety plan, suicide prevention), relapse prevention, importance of follow up with psychiatrist and therapist, stay away from drugs/alcohol/smoking Patient started on Abilify 5 mg one at bedtime for hallucinations/ mood stabilization. Patient on Zoloft 50mg one daily as an outpatient, will continue. Started on Depakore ER 500mg one at bedtime for further mood stabilization. Estimated Date of D/C: 07/25/17
--- NOTE | 2017-07-25 13:45 | PCM.PYCHPN ---
Psychiatric Progress Note - Psychiatric Progress Note Patient seen today, length of contact: 30min Patient Chief Complaint: "I feel like I am starting to be better " Problems Identified/Issues Discussed: Patient is 36 year old male who presented at [facility] ER complaining of feeling suicidal and hearing voices. A bed was unavailable there so they sent him here for admission. He appears older than his stated age , seen today in treatment team. He is dishevelled and his dentitian is poor with teeth missing. He is cooperative with the interview. Patient lives with his mother in an apartment and is supported by her. He has "never worked a day in my life", and she is psychiatrically disabled and hears voices as well. He has no income. Patient is seen in common area of unit. Hygiene and grooming are good. Patient continues to indicate that he is not suicidal, if rehab does not work out will attend a day program. He will continue to live with his mother. He feels the medication is helpful because he is sleeping better and the voices are only mumbling at night before he goes to sleep. AIMS exam is negative. The effect of drug use with psychiatric illness and medication gone over as well as the potentially fatal result of combining them. Patient indicates he plans to maintain sobriety and will attend NA/AA outpatient. Medical Problems: Asthma Chronic Bronchitis Diagnostic Results: Laboratory Results - last 72 hr 07/16/17 07/16/17 07/16/17 08:20 08:20 08:20 Fasting Glucose 97 Hemoglobin A1c 5.3 Triglycerides 161 H Cholesterol 229 H LDL Cholesterol Direct 132 H HDL Cholesterol 59 TSH 3rd Generation 0.67 RPR 07/16/17 08:20 Fasting Glucose Hemoglobin A1c Triglycerides Cholesterol LDL Cholesterol Direct HDL Cholesterol TSH 3rd Generation RPR Nonreactive Temp Pulse Resp BP Pulse Ox 97.9 F 75 20 134/71 99 07/17/17 07:12 07/17/17 07:12 07/17/17 07:12 07/17/17 07:12 07/15/17 19:54 Temp Pulse Resp BP Pulse Ox 97.8 F 75 20 124/81 99 07/18/17 07:27 07/18/17 07:27 07/18/17 07:27 07/18/17 07:27 07/15/17 19:54 Temp Pulse Resp BP Pulse Ox 97.9 F 76 20 120/76 99 07/19/17 07:24 07/19/17 07:24 07/19/17 07:24 07/19/17 07:24 07/15/17 19:54 Temp Pulse Resp BP Pulse Ox 98.0 F 75 20 115/59 L 20 L 07/24/17 07:28 07/24/17 15:55 07/23/17 07:21 07/24/17 15:55 07/24/17 07:28 Temp Pulse Resp BP Pulse Ox 97.5 F L 76 20 109/53 L 20 L 07/25/17 07:22 07/25/17 07:22 07/25/17 07:22 07/25/17 07:22 07/24/17 07:28 Medication Change: No Medical Record Reviewed: Yes Consults ordered or reviewed: Medical consult reviewed, thank you Mental Status Examination - Cognitive Function Orientation: Person, Place, Situation, Time Memory: Intact Attention: Poor Concentration: Poor Association: WNL Fund of Knowledge: Poor - Mood Mood: Depressed ( "not too good, not too bad") - Affect Affect: Constricted, Flat - Speech Speech: Appropriate - Formal Thought Process Formal Thought Process: No Impairment, Hallucinations ( CAH to kill himself but he doesn't appear to be responding to internal stimuli) - Suicidal Ideation Suicidal Ideation: No - Homicidal Ideation Homicidal Ideation: No Goal/Treatment Plan - Goal/Treatment Plan Need for Continued Stay: Remain at risks for inpatient hospitalization, Severe depression anxiety, Discharge may exacerbated symptoms, Severe functional impairment Progress Toward Problem(s) and Goals/Treatment Plan: Milieu/structure/supportive therapy Medical consult appreciated, see medical team note for more detailed info consultation for discharge plan and social issues Med management Family involvement Follow up on labs Will monitor closely evaluation for d/c planning Pt was educated about risk/benefits and alternatives of medications, coping strategies (safety plan, suicide prevention), relapse prevention, importance of follow up with psychiatrist and therapist, stay away from drugs/alcohol/smoking Patient started on Abilify 5 mg one at bedtime for hallucinations/ mood stabilization. Patient on Zoloft 50mg one daily as an outpatient, will continue. Started on Depakore ER 500mg one at bedtime for further mood stabilization. Estimated Date of D/C: 07/25/17
[2017-07-26] MEDS: Albuterol 0.083% Inhal Sol (2.5 mg/3 mL) UD INH PRN (14:02)
--- NOTE | 2017-07-26 17:16 | PCM.PYCHPN ---
Psychiatric Progress Note - Psychiatric Progress Note Patient seen today, length of contact: 30min Patient Chief Complaint: "I am doing good, I just have to stay good when I go home " Problems Identified/Issues Discussed: Patient is 36 year old male who presented at [facility] ER complaining of feeling suicidal and hearing voices. A bed was unavailable there so they sent him here for admission. He appears older than his stated age , seen today in treatment team. He is dishevelled and his dentitian is poor with teeth missing. He is cooperative with the interview. Patient lives with his mother in an apartment and is supported by her. He has "never worked a day in my life", and she is psychiatrically disabled and hears voices as well. He has no income. Patient is seen in common area of unit. Hygiene and grooming are good. Patient was not able to get a bed in a rehab due to his psychiatric history. He will be discharged tomorrow with the plan being that patient attend a day program, AA/NA , and patient plans to also attend christianity for additional support. The importance of abstaining from alcohol and drugs was reviewed, patient indicates he is planning to utilize AA/NA as a support immediately upon discharge. He is no longer suicidal and his hallucinations have decreased greatly. He feels his current medication regime is helpful. AIMS exam is negative. 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 Medical Problems: Asthma Chronic Bronchitis Diagnostic Results: Laboratory Results - last 72 hr 07/16/17 07/16/17 07/16/17 08:20 08:20 08:20 Fasting Glucose 97 Hemoglobin A1c 5.3 Triglycerides 161 H Cholesterol 229 H LDL Cholesterol Direct 132 H HDL Cholesterol 59 TSH 3rd Generation 0.67 RPR 07/16/17 08:20 Fasting Glucose Hemoglobin A1c Triglycerides Cholesterol LDL Cholesterol Direct HDL Cholesterol TSH 3rd Generation RPR Nonreactive Temp Pulse Resp BP Pulse Ox 97.9 F 75 20 134/71 99 07/17/17 07:12 07/17/17 07:12 07/17/17 07:12 07/17/17 07:12 07/15/17 19:54 Temp Pulse Resp BP Pulse Ox 97.8 F 75 20 124/81 99 07/18/17 07:27 07/18/17 07:27 07/18/17 07:27 07/18/17 07:27 07/15/17 19:54 Temp Pulse Resp BP Pulse Ox 97.9 F 76 20 120/76 99 07/19/17 07:24 07/19/17 07:24 07/19/17 07:24 07/19/17 07:24 07/15/17 19:54 Temp Pulse Resp BP Pulse Ox 98.0 F 75 20 115/59 L 20 L 07/24/17 07:28 07/24/17 15:55 07/23/17 07:21 07/24/17 15:55 07/24/17 07:28 Temp Pulse Resp BP Pulse Ox 97.5 F L 76 20 109/53 L 20 L 07/25/17 07:22 07/25/17 07:22 07/25/17 07:22 07/25/17 07:22 07/24/17 07:28 Temp Pulse Resp BP Pulse Ox 97.7 F 90 16 116/63 20 L 07/26/17 06:59 07/26/17 15:00 07/26/17 06:59 07/26/17 15:00 07/24/17 07:28 Medication Change: No Medical Record Reviewed: Yes Consults ordered or reviewed: Medical consult reviewed, thank you Mental Status Examination - Cognitive Function Orientation: Person, Place, Situation, Time Memory: Intact Attention: Poor Concentration: Poor Association: WNL Fund of Knowledge: Poor - Mood Mood: Depressed ( "not too good, not too bad") - Affect Affect: Constricted, Flat - Speech Speech: Appropriate - Formal Thought Process Formal Thought Process: No Impairment, Hallucinations ( CAH to kill himself but he doesn't appear to be responding to internal stimuli) - Suicidal Ideation Suicidal Ideation: No - Homicidal Ideation Homicidal Ideation: No Goal/Treatment Plan - Goal/Treatment Plan Need for Continued Stay: Remain at risks for inpatient hospitalization, Severe depression anxiety, Discharge may exacerbated symptoms, Severe functional impairment Progress Toward Problem(s) and Goals/Treatment Plan: Milieu/structure/supportive therapy Medical consult appreciated, see medical team note for more detailed info consultation for discharge plan and social issues Med management Family involvement Follow up on labs Will monitor closely SW evaluation for d/c planning Pt was educated about risk/benefits and alternatives of medications, coping strategies (safety plan, suicide prevention), relapse prevention, importance of follow up with psychiatrist and therapist, stay away from drugs/alcohol/smoking Patient started on Abilify 5 mg one at bedtime for hallucinations/ mood stabilization. Patient on Zoloft 50mg one daily as an outpatient, will continue. Started on Depakore ER 500mg one at bedtime for further mood stabilization. Estimated Date of D/C: 07/25/17
--- NOTE | 2017-07-27 07:21 | PCM.PYCHDC ---
Mental Status Examination - Mental Status Examination Orientation: Person, Place, Situation, Time Memory: Intact Mood: Neutral Affect: Constricted Speech: Appropriate Attention: WNL Concentration: WNL Association: WNL Fund of Knowledge: WNL Formal Thought Process: Hallucinations Description of patient's judgement and insight: Patient denies being suicidal or homicidal, appears in no imminent danger of hurting himself or others. Psychotic Thoughts and Behaviors: Patient continues to have audio hallucinations. They are greatly decreased, only occurring at night before sleep and are mumbling not specific words or phrases. Denies the presence of visual hallucinations, delusions, or paranoia. Suicidal Ideation: No Current Homicidal Ideation?: No Discharge Summary - Discharge Note Reason for Hospitalization: Patient is 36 year old male who presented at [facility] ER complaining of feeling suicidal and hearing voices. A bed was unavailable there so they sent him here for admission. Laboratory Data: Laboratory Tests 07/16/17 07/16/17 07/16/17 08:20 08:20 08:20 Fasting Glucose 97 Hemoglobin A1c 5.3 Triglycerides 161 H Cholesterol 229 H LDL Cholesterol Direct 132 H HDL Cholesterol 59 TSH 3rd Generation 0.67 RPR 07/16/17 08:20 Fasting Glucose Hemoglobin A1c Triglycerides Cholesterol LDL Cholesterol Direct HDL Cholesterol TSH 3rd Generation RPR Nonreactive Temp Pulse Resp BP Pulse Ox 97.7 F 90 16 116/63 20 L 07/26/17 06:59 07/26/17 15:00 07/26/17 06:59 07/26/17 15:00 07/24/17 07:28 Consultations:: List each consultation separately and include: 1. Reason for request. 2. Findings. 3. Follow-up Consultations: Medical consult reviewed, thank you Summary of Hospital Course include:: 1. Description of specific treatment plan utilized for patients during their course of treatmen. 2. Summarize the time- course for resolution of acute symptoms and/or regressed behaviors. 3. Describe issues identified and worked on during hospitalization. 4. Describe medication utilized. 5. Describe medical problems identified and treated. 6. Reassessment of suicide risk Summary of Hospital Course: Patient is a 36 year old single male appearing older than his stated age, seen today in treatment team. He is dishevelled and his dentitian is poor with teeth missing. He is cooperative with the interview. Patient lives with his mother in an apartment and is supported by her. He has "never worked a day in my life", and she is psychiatrically disabled and hears voices as well. He has no income. He is involved with a psychiatric outpatient program called [facility]. He denies any history of previous psychiatric hospitalizations but has told staff he was hospitalized 14x at [facility]. He says he is on Zoloft and Remeron, unable to tell me the dosages or the pharmacy. He denies previous suicide attempts but sometimes has command hallucinations telling him to hurt himself. Medically he indicates he has food allergies to pepper, red food dye, onions, fish. Has a history of Asthma uses a rescue inhaler 2-3x daily. Legally the patient has no charges pending, has been in [facility] off and on in his life, estimates at least 20 years total. First arrest was at age 11, has been arrested for possession of drugs many times, also possession of a firearm and terroristic threats. He has been out for 1 1/2 years with no new charges and no PO. He was always kept in the [facility] portion of the [facility]. He has no current access to guns. Social and Developmental History: Patient grew up in [facility], father left the family early on, used drugs and when patient 16. He was raised by his mother, is the youngest of three boys but one was from a different father so he took custody of him. Childhood was hard, "my mom did he best she could". Did not do well in school, was in special ed classes and dropped out in the 9th grade. His father and grandfather when he was 16, he started hearing voices shortly after "that is when my life went downhill". He was involved with drugs, went to [facility]. He has been involved with 5 women and has 6 children, three of them boys. He is only involved with the boys, and all three hear voices and "have problems like me". Goal for treatment according to patient is to decrease his symptoms with medication change while in hospital. He will return home to his mother at discharge. Patient was cooperative with unit routines, attending groups and socializing appropriately with peers. Patient has been using PCP, was willing to go to rehab , but was limited as to options with his psychiatric symptoms. There were no beds available that were appropriate for him. He was very comfortable on the unit. His symptoms improved with medication change, and patient indicates that these medications appear to be more effective for him. There were no side effects noted or reported and his AIMS exam is negative. He was educated as to the dangers of combining psychiatric medication and drugs. Abstinence was encouraged. Patient plans to attend AA/NA today and over weekend, psychiatric day treatment with medication follow up was arranged. He indicates that he plans to follow up and understands that medication followup and compliance will help him maintain his stability. - Diagnosis (1) Depression Current Visit: Yes Status: Acute Priority: Medium - Final Diagnosis (DSM 5) Condition upon Discharge: STABLE Disposition: HOME/ ROUTINE Follow-up Treatment Plan: Milieu/structure/supportive therapy Medical consult appreciated, see medical team note for more detailed info SW consultation for discharge plan and social issues Med management Family involvement Follow up on labs Will monitor closely SW evaluation for d/c planning Pt was educated about risk/benefits and alternatives of medications, coping strategies (safety plan, suicide prevention), relapse prevention, importance of follow up with psychiatrist and therapist, stay away from drugs/alcohol/smoking Patient started on Abilify 5 mg one at bedtime for hallucinations/ mood stabilization. Patient on Zoloft 50mg one daily as an outpatient, will continue. Started on Depakore ER 500mg one at bedtime for further mood stabilization. Prescriptions/Medication Reconciliation: Benztropine [Cogentin] 1 mg PO [facility] #14 tab FLUoxetine [Prozac] 30 mg PO DAILY #14 cap risperiDONE [RisperDAL Tab] 2 mg PO [facility]HS #28 tab - Smoking Cessation Smoking Cessation Medication prescribed: Yes - Antipsychotic Medications Pt discharged on 2 or more routine antipsychotic medications: No
[2017-07-27 07:45] VITALS: BP 121/68; PULSE 86; RESP 20; TEMP 98.1
[2017-07-27] MEDS: Albuterol 0.083% Inhal Sol (2.5 mg/3 mL) UD INH PRN (10:33)
== END 2017-07-27 12:22 | disposition home or self-care (01) | DRG 430 ==
LOC: EDSEX → ED 19:54 → ERH 20:25 → PSYC 20:50
PROVIDERS: ADMIT Psychiatry & Neurology Psychiatry; ATTEND Psychiatry & Neurology Psychiatry
DX: F32.89 Other specified depressive episodes (principal); R45.851 Suicidal ideations; F20.9 Schizophrenia, unspecified; F16.90 Hallucinogen use, unspecified, uncomplicated; F31.9 Bipolar disorder, unspecified; F41.9 Anxiety disorder, unspecified; J42 Unspecified chronic bronchitis; J45.909 Unspecified asthma, uncomplicated; K00.0 Anodontia; Z79.899 Other long term (current) drug therapy; Z81.0 Family history of intellectual disabilities; Z81.8 Family history of other mental and behavioral disorders; Z82.5 Family history of asthma and other chronic lower respiratory diseases; F17.210 Nicotine dependence, cigarettes, uncomplicated; Z82.49 Family history of ischemic heart disease and other diseases of the circulatory system; Z83.3 Family history of diabetes mellitus; Z91.013 Allergy to seafood; Z91.018 Allergy to other foods

== ENCOUNTER 2017-07-29 15:25 | Emergency (ER) | payer MEDICAID, OTHER ==
[2017-07-29 15:25] VITALS: BMI 29.6
--- NOTE | 2017-07-29 15:46 | ED PDOC ---
Arrival/HPI - General Historian: Patient <Everett Mary - Last Filed: 07/30/17 00:13> <Ruel Bowman - Last Filed: 07/30/17 06:06> - General Time Seen by Provider: 07/29/17 15:27 - History of Present Illness Narrative History of Present Illness (Text): 07/29/17 15:39 36 year old male, no significant pmh, psychiatric history including depression/ suicidal/schizophrenia but not compliant with the medication, nkda, complaining of hearing voices and the voice is telling him to hurt himself but he didn't. Pt. stated that he would like to be here for the psychiatric evaluation as he is hearing voices and telling him to hurt himself with no plans or methods but he is able to control himself and come to the ER for psychiatric evaluation. Pt. has no chest pain or shortness of breath, no night sweat,no dizziness, no rash, no other medical or psychological complaints. (Everett Mary) Past Medical History - Provider Review Nursing Documentation Reviewed: Yes - Infectious Disease Hx of Infectious Diseases: None - Reproductive Currently Lactating: No - Cardiac Hx Cardiac Disorders: No - Pulmonary Hx Respiratory Disorders: No - Neurological Hx Neurological Disorder: No - HEENT Hx HEENT Disorder: No - Renal Hx Renal Disorder: No - Endocrine/Metabolic Hx Endocrine Disorders: No - Hematological/Oncological Hx Blood Disorders: No - Integumentary Hx Dermatological Disorder: No - Musculoskeletal/Rheumatological Hx Musculoskeletal Disorders: No - Gastrointestinal Hx Gastrointestinal Disorders: No - Genitourinary/Gynecological Hx Genitourinary Disorders: No - Psychiatric Hx Depression: Yes Hx Substance Use: Yes - Anesthesia Hx Anesthesia: No <Everett Mary - Last Filed: 07/30/17 00:13> Family/Social History - Physician Review Nursing Documentation Reviewed: Yes Family/Social History: Unknown Family HX Smoking Status: Heavy Smoker > 10 Cigarettes Daily Hx Alcohol Use: Yes Hx Substance Use: Yes <Everett Mary - Last Filed: 07/30/17 00:13> Allergies/Home Meds <Everett Mary - Last Filed: 07/30/17 00:13> <Ruel Bowman - Last Filed: 07/30/17 06:06> Allergies/Adverse Reactions: Allergies pepper Allergy (Verified 07/29/17 15:43) RASH red (food color) Allergy (Verified 07/29/17 15:43) RASH FISH Adverse Reaction (Verified 07/29/17 15:43) RASH onion Adverse Reaction (Verified 07/29/17 15:43) RASH Review of Systems - Review of Systems Constitutional: absent: Fatigue, Fevers Eyes: absent: Vision Changes ENT: absent: Hearing Changes Respiratory: absent: SOB, Cough Cardiovascular: absent: Chest Pain Gastrointestinal: absent: Abdominal Pain, Nausea, Vomiting Skin: absent: Rash, Pruritis Psychiatric: Depression, Other (+auditory hallucinatin, suicidal ideation?). absent: Anxiety <Everett Mary Q - Last Filed: 07/30/17 00:13> Physical Exam - Systems Exam Head: Present: Atraumatic, Normocephalic Pupils: Present: PERRL Extroacular Muscles: Present: EOMI Conjunctiva: Present: Normal Mouth: Present: Moist Mucous Membranes Neck: Present: Normal Range of Motion Respiratory/Chest: Present: Clear to Auscultation, Good Air Exchange. No: Respiratory Distress, Accessory Muscle Use Cardiovascular: Present: Regular Rate and Rhythm, Normal S1, S2. No: Murmurs Abdomen: Present: Normal Bowel Sounds. No: Tenderness, Distention, Peritoneal Signs Back: Present: Normal Inspection Upper Extremity: Present: Normal Inspection. No: Cyanosis, Edema Lower Extremity: Present: Normal Inspection. No: Edema Neurological: Present: GCS=15, CN II-XII Intact, Speech Normal Skin: Present: Warm, Dry, Normal Color. No: Rashes Psychiatric: Present: Alert, Oriented x 3, Normal Insight, Normal Concentration , Depressed Mood, Hallucinations <Everett Mary Q - Last Filed: 07/30/17 00:13> Vital Signs Temp Pulse Resp BP Pulse Ox 07/30/17 05:30 98.4 F 80 16 142/66 99 07/29/17 23:17 88 18 134/77 99 07/29/17 20:04 91 H 18 127/70 100 07/29/17 15:25 98.6 F 90 18 117/66 100 Medical Decision Making - RAD Interpretation Human Resources Assistant: Radiologist - EKG Interpretation Interpreted by ED Physician: Yes Type: 12 lead EKG Comparison: No previous EKG avail. <Everett Mary Q - Last Filed: 07/30/17 00:13> <Ruel Bowman - Last Filed: 07/30/17 06:06> ED Course and Treatment: 07/29/17 15:49 -labs/ua/uds -ekg (pt. has no cardiopulmonary complaints, will obtain as part of the medical clearance) -cxr -one on one -PES paged and will come to evaluate -observe and reassess 07/29/17 17:11 -EKG: NSR @ 93 BPM, no ST elevation or depression, multiple T wave inversion on the lead III/aVF/V3-V6, no previous ekg available for comparison. -Chest xray show no active disease -Labs show no acute findings except mild elevation of wbc 11.3 (afebrile), CK is 460 (pt. is drinking fluid). -Urinalysis show no UTI -UDS show +cocaine and +opiate -Alcohol is 22 -Pt. is medically clear and stable for the psychiatric evaluation. 07/29/17 18:17 -Pt. evaluated by the PES Jacqueline which she spoke with the psychiatrist unit manager convenience stores Dr. Miller, recommend to admit the patient and can not be discharged, no bed until tomorrow, ativan 1mg prn if agitated. -Diet order/routine vital signs order placed. -I discussed with DR. Kinsey, he will put in the admission order. 07/30/17 02:00 -Pt. is admitted to y, no bed, pending for bed, still in the ER, case endorsed to Dr. Bowman until the patient is up on the psych unit. (Everett Mary) 07/30/17 07:[address] Villegas, on hold in ER awaiting re-evaluation by psychiatrist and bed availability. (Ruel Bowman) - Lab Interpretations Lab Results: 07/29/17 15:45 07/29/17 15:45 Lab Results 07/29/17 15:50: Urine Color Yellow, Urine Appearance Clear, Urine pH 6.5, Ur Specific [place] 1.025, Urine Protein Negative, Urine Glucose (UA) Negative, Urine Ketones Negative, Urine Blood Negative, Urine Nitrate Negative, Urine Bilirubin Negative, Urine Urobilinogen 1.0 H, Ur Leukocyte Esterase Negative 07/29/17 15:50: Urine Opiates Screen Positive H, Urine Methadone Screen Negative , Ur Barbiturates Screen Negative, Ur Phencyclidine Scrn Negative, Ur Amphetamines Screen Negative, U Benzodiazepines Scrn Negative, U Oth Cocaine Metabols Positive H, U Cannabinoids Screen Negative 07/29/17 15:45: Alcohol, Quantitative 22 H 07/29/17 15:45: Salicylates < 1 L, Acetaminophen < 10.0 L 07/29/17 15:45: Sodium 143, Potassium 4.0, Chloride 106, Carbon Dioxide 24, Anion Gap 18, BUN 7, Creatinine 0.9, Est GFR ( Amer) > 60, Est GFR (Non- Af Amer) > 60, Random Glucose 128 H, Calcium 9.7, Total Bilirubin 0.4, AST 37, ALT 41, Alkaline Phosphatase 80, Lactate Dehydrogenase 624, Total Creatine Kinase 460 H, CK-MB (CK-2) 1.1, CK-MB (CK-2) % Cancelled, Troponin I < 0.01, Total Protein 7.5, Albumin 4.4, Globulin 3.1, Albumin/Globulin Ratio 1.4 07/29/17 15:45: WBC 11.3 H, RBC 5.29, Hgb 15.8, Hct 45.8, MCV 86.6, MCH 29.9, MCHC 34.5, RDW 14.5, Plt Count 296, MPV 9.6, Gran % 80.2 H, Lymph % (Auto) 12.0 L, [place] % (Auto) 5.3, Eos % (Auto) 2.3, Baso % (Auto) 0.2, Gran # 9.06 H, Lymph # (Auto) 1.4, [place] # (Auto) 0.6, Eos # (Auto) 0.3, Baso # (Auto) 0.02 - RAD Interpretation Radiology Orders: 07/29/17 15:46 CHEST PORTABLE [RAD] Stat HISTORY: medical clearance COMPARISON: No prior. FINDINGS: LUNGS: The lungs are clear. PLEURA: No significant pleural effusion identified, no pneumothorax apparent. CARDIOVASCULAR: Normal. OSSEOUS STRUCTURES: No significant abnormalities. VISUALIZED UPPER ABDOMEN: Normal. OTHER FINDINGS: None. IMPRESSION: No active pulmonary disease. (Everett Mary) - EKG Interpretation EKG Interpretation (Text): 07/29/17 15:52 -EKG: NSR @ 93 BPM, no ST elevation or depression, multiple T wave inversion on the lead III/aVF/V3-V6, no previous ekg available for comparison. (Everett Mary) - PA / BLOCK CAPTAIN / Resident Statement LEILA has reviewed & agrees with the documentation as recorded. <Everett Mary - Last Filed: 07/30/17 00:13> - PA / BLOCK CAPTAIN / Resident Statement LEILA has reviewed & agrees with the documentation as recorded. LEILA has examined the patient and agrees with the treatment plan. <Ruel Bowman - Last Filed: 07/30/17 06:06> Disposition/Present on Arrival - Present on Arrival Any Indicators Present on Arrival: No History of DVT/PE: No History of Uncontrolled Diabetes: No Urinary Catheter: No History of Decub. Ulcer: No History Surgical Site Infection Following: None - Disposition Have Diagnosis and Disposition been Completed?: Yes Disposition Time: 15:50 Patient Plan: Admission <Everett Mary - Last Filed: 07/30/17 00:13> <Ruel Bowman - Last Filed: 07/30/17 06:06> - Disposition Diagnosis: Drug abuse, Alcohol intoxication, Suicidal ideation Disposition: HOSPITALIZED Patient Problems: Current Active Problems Problem Status Onset Alcohol intoxication Acute Drug abuse Acute Suicidal ideation Acute Condition: STABLE
[2017-07-29 16:11] LABS: BASO # 0.02 K/mm3 (0.0-2.0); BASO % 0.2 % (0.0-3.0); EOS # 0.3 (0.0-0.7); EOS % 2.3 % (1.5-5.0); GRAN # 9.06 (1.4-6.5); GRAN % 80.2 % (50.0-68.0); HEMOGLOBIN 15.8 g/dL (14.0-18.0); LYMPH # 1.4 (1.2-3.4); MEAN CELL VOLUME 86.6 fl (80.0-105.0); MEAN CORPUSCULAR HEMOGLOBIN 29.9 pg (25.0-35.0); MEAN CORPUSCULAR HGB CONC 34.5 g/dl (31.0-37.0); MEAN PLATELET VOLUME 9.6 fl (7.0-11.0); MONO # 0.6 (0.1-0.6); MONO % 5.3 % (1.0-6.0); RBC 5.29 10^6/uL (3.5-6.1); RED CELL DISTRIBUTION WIDTH 14.5 % (11.5-14.5); WHITE BLOOD COUNT 11.3 10^3/ul (4.5-11.0)
[2017-07-29 16:14] LABS: ALB/GLOB RATIO 1.4 (1.1-1.8); ALBUMIN 4.4 g/dL (3.0-4.8); ALT/SGPT 41 U/L (7-56); AST/SGOT 37 U/L (17-59); BLOOD UREA NITROGEN 7 mg/dL (7-21); CALCIUM 9.7 mg/dL (8.4-10.5); GFR AFRICAN-AMERICAN > 60; GFR NON-AFRICAN AMERICAN > 60
[2017-07-29 16:15] LABS: ACETAMINOPHEN < 10.0 ug/ml (10.0-20.0); SALICYLATE < 1 mg/dL (2.0-20.0)
[2017-07-29 16:23] LABS: BARBITURATES, UR NEGATIVE (NEGATIVE)
[2017-07-29 16:26] LABS: BENZODIAZEPINES, UR NEGATIVE (NEGATIVE); OPIATES, UR POSITIVE (NEGATIVE); PHENCYCLIDINE, UR NEGATIVE (NEGATIVE)
--- NOTE | 2017-07-29 16:27 | RAD ---
HISTORY: medical clearance COMPARISON: No prior. FINDINGS: LUNGS: The lungs are clear. PLEURA: No significant pleural effusion identified, no pneumothorax apparent. CARDIOVASCULAR: Normal. OSSEOUS STRUCTURES: No significant abnormalities. VISUALIZED UPPER ABDOMEN: Normal. OTHER FINDINGS: None. IMPRESSION: No active pulmonary disease.
[2017-07-29 17:07] LABS: CK-MB 1.1 ng/mL (0.0-3.6); TROPONIN I < 0.01 ng/mL
[2017-07-29 17:17] LABS: PH,URINE 6.5 (4.7-8.0); URINE BILIRUBIN NEGATIVE (NEGATIVE); URINE BLOOD NEGATIVE (NEGATIVE); URINE GLUCOSE (UA) NEGATIVE (NEGATIVE); URINE LEUKOCYTE ESTERASE NEGATIVE Leu/uL (NEGATIVE); URINE NITRATE NEGATIVE (NEGATIVE); URINE PROTEIN NEGATIVE mg/dL (<30 mg/dL)
[2017-07-29 17:19] LABS: URINE APPEARANCE CLEAR (CLEAR); URINE COLOR YELLOW (YELLOW)
[2017-07-29 23:18] VITALS: O2SAT 99
[2017-07-30 06:03] VITALS: TEMP 98.4
--- NOTE | 2017-07-30 07:10 | ED PDOC ---
Physical Exam Vital Signs Reviewed: Yes Vital Signs Temp Pulse Resp BP Pulse Ox 07/30/17 05:30 98.4 F 80 16 142/66 99 07/29/17 23:17 88 18 134/77 99 07/29/17 20:04 91 H 18 127/70 100 07/29/17 15:25 98.6 F 90 18 117/66 100 Temperature: Afebrile Blood Pressure: Normal Pulse: Regular Respiratory Rate: Normal Appearance: Positive for: Well-Appearing, Non-Toxic, Comfortable Pain Distress: None Mental Status: Positive for: Alert and Oriented X 3 - Systems Exam Head: Present: Atraumatic, Normocephalic Pupils: Present: PERRL Extroacular Muscles: Present: EOMI Conjunctiva: Present: Normal Ears: Present: Normal Mouth: Present: Moist Mucous Membranes Pharnyx: Present: Normal Nose (External): Present: Atraumatic Nose (Internal): Present: Normal Inspection Neck: Present: Normal Range of Motion Respiratory/Chest: Present: Clear to Auscultation, Good Air Exchange Cardiovascular: Present: Regular Rate and Rhythm Abdomen: No: Tenderness, Distention, Normal Bowel Sounds, Peritoneal Signs, Rebound, Guarding, McBurney's Point Tender, Rovsing's Sign Present, Hernias, Feeding Tubes, Ostomy Tubes, Mass/Organomegaly, Scars, Other Back: Present: Normal Inspection Upper Extremity: Present: Normal Inspection Lower Extremity: Present: Normal Inspection Neurological: Present: GCS=15, CN II-XII Intact, Speech Normal, Motor Func Grossly Intact Skin: Present: Warm, Normal Color Psychiatric: Present: Alert, Oriented x 3, Normal Insight, Normal Concentration Medical Decision Making ED Course and Treatment: 07/30/17 07:09 Patient endorsed to me by Dr. Bowman at 07:00, pending PES re-evaluation and bed availability. 07/30/17 09:46 you were treated in the ED today for metnal health evaluation by Dr. Rodriguez psychiatry who has cleared you to go home. You were otherwise breathing easily, pink moist lips, talking easily, good strength/sensation, alert/oriented, walking easily, clear lungs, no abdomen tenderness, no fever temp 98.6, stable heart rate 90, stable breathing rate 18, excellent oxygen level 100% room air, stable blood pressure 117/66, you have blood tests no infection count 11, stable blood level hemoglobin 15/platelets 296, stable chemistry, heart blood test negative, urine test no acute sign of infection, urine drug test positive for opiates/cocaine, urine alcohol level 22, radiology chest xray no active disease, ECG normal sinus rhythm, observation done in the ED with improvement, Dr. Rodriguez stated to followup mental health outpatient as instructed, counselled to stop using drugs, stop drinking alcohol and thus discharged home after observation, sober, alert/oriented, without thoughts to harm yourself or others or hallucinations. 1. Recommend per Dr. Rodriguez psychiatry medications as instructed. 2. Recommend follow-up primary care 2-3 days to review symptoms, mental health as instructed by Dr. Rodriguez Psychiatry. 3. If any worsening pain, fever, chills, nausea, vomiting, difficulty breathing, numbness, loss of limb function, pain with urination or any medical condition then return to the ED. 07/30/17 09:47 07/30/17 09:48 07/30/17 09:49 Reassessment Condition: Re-examined, Improved - Lab Interpretations Lab Results: 07/29/17 15:45 07/29/17 15:45 Lab Results 07/29/17 15:50: Urine Color Yellow, Urine Appearance Clear, Urine pH 6.5, Ur Specific [place] 1.025, Urine Protein Negative, Urine Glucose (UA) Negative, Urine Ketones Negative, Urine Blood Negative, Urine Nitrate Negative, Urine Bilirubin Negative, Urine Urobilinogen 1.0 H, Ur Leukocyte Esterase Negative 07/29/17 15:50: Urine Opiates Screen Positive H, Urine Methadone Screen Negative , Ur Barbiturates Screen Negative, Ur Phencyclidine Scrn Negative, Ur Amphetamines Screen Negative, U Benzodiazepines Scrn Negative, U Oth Cocaine Metabols Positive H, U Cannabinoids Screen Negative 07/29/17 15:45: Alcohol, Quantitative 22 H 07/29/17 15:45: Salicylates < 1 L, Acetaminophen < 10.0 L 07/29/17 15:45: Sodium 143, Potassium 4.0, Chloride 106, Carbon Dioxide 24, Anion Gap 18, BUN 7, Creatinine 0.9, Est GFR ( Amer) > 60, Est GFR (Non- Af Amer) > 60, Random Glucose 128 H, Calcium 9.7, Total Bilirubin 0.4, AST 37, ALT 41, Alkaline Phosphatase 80, Lactate Dehydrogenase 624, Total Creatine Kinase 460 H, CK-MB (CK-2) 1.1, CK-MB (CK-2) % Cancelled, Troponin I < 0.01, Total Protein 7.5, Albumin 4.4, Globulin 3.1, Albumin/Globulin Ratio 1.4 07/29/17 15:45: WBC 11.3 H, RBC 5.29, Hgb 15.8, Hct 45.8, MCV 86.6, MCH 29.9, MCHC 34.5, RDW 14.5, Plt Count 296, MPV 9.6, Gran % 80.2 H, Lymph % (Auto) 12.0 L, [place] % (Auto) 5.3, Eos % (Auto) 2.3, Baso % (Auto) 0.2, Gran # 9.06 H, Lymph # (Auto) 1.4, [place] # (Auto) 0.6, Eos # (Auto) 0.3, Baso # (Auto) 0.02 I have reviewed the lab results: Yes - RAD Interpretation Radiology Orders: 07/29/17 15:46 CHEST PORTABLE [RAD] Stat [employer] Radar Operator: ED Physician (cxr no activ disease) - EKG Interpretation Interpreted by ED Physician: Yes (NSR) Type: 12 lead EKG Disposition/Present on Arrival - Present on Arrival Any Indicators Present on Arrival: No History of DVT/PE: No History of Uncontrolled Diabetes: No Urinary Catheter: No History of Decub. Ulcer: No History Surgical Site Infection Following: None - Disposition Have Diagnosis and Disposition been Completed?: Yes Diagnosis: Drug abuse, Alcohol intoxication, Depression Disposition: HOME/ ROUTINE Disposition Time: 09:52 Patient Plan: Discharge Patient Problems: Current Active Problems Problem Status Onset Suicidal ideation Acute Drug abuse Acute Alcohol intoxication Acute Condition: IMPROVED - Notes Notes (Text): you were treated in the ED today for metnal health evaluation by Dr. Rodriguez psychiatry who has cleared you to go home. You were otherwise breathing easily, pink moist lips, talking easily, good strength/sensation, alert/oriented, walking easily, clear lungs, no abdomen tenderness, no fever temp 98.6, stable heart rate 90, stable breathing rate 18, excellent oxygen level 100% room air, stable blood pressure 117/66, you have blood tests no infection count 11, stable blood level hemoglobin 15/platelets 296, stable chemistry, heart blood test negative, urine test no acute sign of infection, urine drug test positive for opiates/cocaine, urine alcohol level 22, radiology chest xray no active disease, ECG normal sinus rhythm, observation done in the ED with improvement, Dr. Rodriguez stated to followup mental health outpatient as instructed, counselled to stop using drugs, stop drinking alcohol and thus discharged home after observation, sober, alert/oriented, without thoughts to harm yourself or others or hallucinations. 1. Recommend per Dr. Rodriguez psychiatry medications as instructed. 2. Recommend follow-up primary care 2-3 days to review symptoms, mental health as instructed by Dr. Rodriguez Psychiatry. 3. If any worsening pain, fever, chills, nausea, vomiting, difficulty breathing, numbness, loss of limb function, pain with urination or any medical condition then return to the ED. 07/30/17 09:53
[2017-07-30 11:21] VITALS: BP 126/65; PULSE 75; RESP 18
--- NOTE | 2017-07-30 21:29 | CON ---
SUBJECTIVE: The patient is a 36-year-old male, who was recently discharged from the psychiatric inpatient unit on 07/27/2017. On 07/29/2017, the patient came back to the hospital looking for admission. The patient was not taking his medications, chose to use drugs. The patient relapsed on opioids as well as cocaine. The patient stayed in the hospital for 2 weeks with discharge plan intact. The patient was sent to intensive outpatient program. The patient was provided transportation. The patient also had followup appointment at intensive outpatient program on this Sunday. drying can worker as well as nurse practitioner provided the patient with information with AA meeting and NA meetings. The patient was compliant with the medication while he stayed in the hospital. The patient was not psychotic, not hearing voices. At the same time, the patient was looking to feel comfortable in the hospital with no aggression, no agitation. The patient did not appear to be internally preoccupied, had a good appetite and sleep, was attending all of the groups, going back to this emergency room visit. After the patient was discharged from the hospital, the patient chose not to go to [place] where he lives. The patient stayed in the area and the patient used drugs and specifically came back to the hospital on Sunday looking for admission. The patient was seen today in the emergency room with the medical student as well as nurse practitioner who was taking care of him last admission. The patient presented to have fair personal hygiene, and was alert and oriented. The patient was providing inconsistent stories, was not able to describe gender of the voices, telling vague statement. For example when this tech writer asked to describe the voices, the patient said "sometimes it is good, sometimes it is bad, it is about it." The patient does not appear to be internally preoccupied, does not respond to internal stimuli. The patient reported that he feels depressed and reported that he had suicidal ideation; at the same time, the patient denied any plan or intent to kill himself. When this tech writer asked about depressive symptoms, the patient answered "sometimes I feel sad, sometimes I feel okay." The patient denied that the voices are new for him. The patient was providing inconsistent stories. Collateral information was obtained from the nursing staff in the emergency room. As per nursing staff report, the patient does not have any aggressive or agitated behavior. The patient was having good appetite and sleep. The patient was watching TV, feels comfortable. Notes from the PS worker also reviewed throughout the weekend. The patient did not appear to be internally preoccupied or responding to internal stimuli. How the patient described, this tech writer had impression that the patient is looking for admission because he does not want to be in the community and wants to have food and alf. Moreover, the patient did not want his family to be involved and did not give permission to talk to his family throughout this admission. Discussed with the delinquency prevention social worker. As per delinquency prevention social worker, multiple rehabs were called but the patient was rejected based on history of incarceration and history of aggressive behavior, also antisocial behavior. PHYSICAL EXAMINATION: VITAL SIGNS: This tech writer reviewed vital signs. Vital signs are stable. Temperature 98.4, pulse is 80, blood pressure 142/66, respirations 16, oxygen saturation is 99. MEDICATIONS: Reviewed. The patient has all of the prescriptions which were provided by nurse practitioner as well as nurse practitioner last Sunday. The patient said that he has everything on him. LABORATORY DATA: Labs reviewed. Opioids positive and cocaine positive. Hematology: WBC 11.3, which is mildly elevated. Chemistry within normal limits, but triglycerides, cholesterol, and LDH are elevated. Urinalysis showed no infection. Serology RPR negative. MENTAL STATUS EXAMINATION: The patient appears to be alert and oriented, pleasant but superficially cooperative, was exaggerating his symptoms. Fair eye contact. Speech was normal rate, tone, quality and quantity. Thought process is goal directed, coherent. There are no signs of disorganized thoughts and behavior. Mood described "sometimes I feel good, sometimes I feel bad." Affect is constricted. Thought content, patient verbalized that he hears voices but was not able to describe the voices, and said "sometimes it is good, sometimes it is bad, that is about it." The patient does not appear to be psychotic, does not appear to be paranoid. The patient reported that he has suicidal thoughts, but denied any intent or plan to kill himself; contracted for safety. Insight and judgment seems to be fair. Impulses are well controlled. IMPRESSION: Based on this story, the patient was providing inconsistent history. No signs of psychosis. No signs of depression. No signs of anxiety but secondary gain cannot be excluded at present moment. PLAN: The patient has followup appointment on Sunday at the intensive outpatient program. The patient was advised to stay away from drugs. The patient reported that he has mother and he lives with her. Most likely the patient is homeless. At present moment, there is nothing else can be done for this patient. The patient presented to be looking for admission for food and alf; secondary gain cannot be excluded. The patient's impression is that he needs to stay in the long-term facility. At the same time, the patient does not meet the criteria for admission to the psychiatric inpatient unit. All aftercare plan was provided to the patient. At this point, the patient does not meet the criteria to go to the psychiatric inpatient unit as well as screening. The patient has all the prescriptions filled already. The patient posed no imminent danger to self or others. This tech writer has signed off. Collateral information was obtained from the nursing staff in the emergency room and physician. Notes reviewed from the PS worker as well as Dr. Miller's. Recommendation was [id number] evaluation in the emergency room which was done today. The patient was seen with nurse practitioner who confirmed that prior to discharge, the patient denied thoughts of harming himself, denied thoughts of harming others, compliant with the medication, and the patient also reported that he was hearing minimal voices and was clear for discharge. As of now, the patient might benefit from intensive outpatient program which he has appointment on this coming Sunday. This tech writer will sign off. Should you have any questions, give me a call back. Thank you very much for letting me participate in the care of your patient. Jennifer Abdi MD
--- NOTE | 2017-07-30 21:37 | CARD ---
APPROVED REPORT EKG Measurement Heart [id number] <Conclusion> Normal sinus rhythm Nonspecific ST and T wave abnormality Abnormal ECG
== END 2017-07-30 10:36 | disposition home or self-care (01) ==
LOC: ED 15:25 → UNDOADMIN 19:45 → ERH 19:45
DX: F10.129 Alcohol abuse with intoxication, unspecified (principal); Y90.1 Blood alcohol level of 20-39 mg/100 ml; F19.10 Other psychoactive substance abuse, uncomplicated; R45.851 Suicidal ideations